=== PATIENT | female | born 1940 | race Caucasian/White ===

== ENCOUNTER → 2016-10-30 | Outpatient (CLI) | payer MEDICARE, OTHER ==
[2016-10-30 12:27] LABS: Prothrombin Time 10.5 sec (9.0-12.0)
== END | disposition home or self-care (01) ==
LOC: LABPAT 11:29
PROVIDERS: ATTEND Orthopaedic Surgery
DX: Z01.812 Encounter for preprocedural laboratory examination (principal); Z79.01 Long term (current) use of anticoagulants
CPT/HCPCS: 36415; 71020; 80053; 83036; 83880; 84439; 84443; 84550; 85025; 85610; 85730; 86850; 86900; 86901

== ENCOUNTER → 2016-10-30 | Outpatient (CLI) | payer MEDICARE, OTHER ==
[2016-10-30 11:13] LABS: Basophils % (A) 0 %; CH 28.4; CHCM 31.9; Eosinophils # (A) 0.2 k/uL (0-0.7); Eosinophils % (A) 4 %; HCT 43.2 % (34.0-46.0); HDW 2.83; HGB 13.6 gm/dL (11.4-16.0); Hypochromasia Slight; Luc # (Auto) 0.13; Luc % (Auto) 3; Lymphocytes # (A) 1.3 k/uL (1.0-4.8); Lymphocytes % (A) 27 %; MCH 28.1 pg (25.0-35.0); MCHC 31.4 g/dL (31.0-37.0); MCV 89.3 fL (80.0-100.0); Mean Platelet Volume 7.4; Monocytes # (A) 0.3 k/uL (0-1.0); Monocytes % (A) 6 %; Neutrophils # (A) 2.9 k/uL (1.3-7.7); Neutrophils % (A) 60 %; RBC 4.84 m/uL (3.80-5.40); RDW 14.1 % (11.5-15.5); WBC 4.8 k/uL (3.8-10.6); WBC (Perox) 4.99
--- NOTE | 2016-10-30 11:22 | XR ---
EXAMINATION TYPE: XR chest 2V DATE OF EXAM: 10/30/2016 10:58 AM COMPARISON: 04/17/12 HISTORY: Shortness of breath TECHNIQUE: Frontal and lateral views of the chest are obtained. FINDINGS: Scattered senescent parenchymal changes noted. Hyperinflation compatible with COPD. No evidence for infiltrate. No evidence for atelectasis. Heart size is stable. Mediastinal structures are stable and grossly unremarkable. No evidence for hilar prominence. Degenerative changes dorsal spine. IMPRESSION: 1. No evidence for acute pulmonary disease.
[2016-10-30 11:24] LABS: Calcium 9.4 mg/dL (8.4-10.2); Potassium 4.5 mmol/L (3.5-5.1); Total Bilirubin 0.8 mg/dL (0.2-1.3); Total Protein 7.1 g/dL (6.3-8.2); Uric Acid 6.6 mg/dL (3.7-7.4)
[2016-10-30 11:42] LABS: Hemoglobin A1C 5.1 % (4.2-6.1)
== END | disposition home or self-care (01) ==
LOC: LABWHC1 10:29
PROVIDERS: ATTEND Orthopaedic Surgery
DX: Z01.818 Encounter for other preprocedural examination (principal); Z01.812 Encounter for preprocedural laboratory examination; Z79.01 Long term (current) use of anticoagulants
CPT/HCPCS: 36415; 71020; 80053; 83036; 83880; 84439; 84443; 84550; 85025

== ENCOUNTER 2016-11-09 05:55 | Inpatient (IN) | payer MEDICARE, OTHER ==
[2016-11-02 12:37] VITALS: BMI 50.8
--- NOTE | 2016-11-08 13:24 | HP ---
DATE OF ADMISSION: 11/09/2016 Lisa Campos is a 76-year-old patient seen with symptomatic right hip osteoarthritis. After having treatment options discussed, she elected to proceed with direct anterior approach, right total hip arthroplasty. Consent regarding the procedure was obtained. Medical clearance was provided by Dr. Tinajero. Past medical history is hypertension, gastroesophageal reflux disease, osteoarthritis, hypothyroidism. Past surgical history is left total knee arthroplasty. DAILY MEDICATIONS: 1. Tramadol. 2. Alprazolam. 3. Furosemide. 4. Hydralazine. 5. Levothyroxine. 6. Metoprolol. 7. Prilosec. 8. Spironolactone. Allergies are none. SOCIAL HISTORY: Patient denies tobacco use. Physical evaluation of right hip: There is diffuse tenderness, limited range of motion with severe pain, diffuse weakness about the hip girdle, positive hip impingement sign. Straight-leg raise is negative. Distal neurovascular exam is intact. Radiographs of the right hip revealed severe osteoarthritis. IMPRESSION: Right hip osteoarthritis. PLAN: Direct anterior approach right total hip arthroplasty.
[~2016-11-09 05:55] MED LIST: ACETAMINOPHEN TAB 500 MG TAB PO ONE; FAMOTIDINE 20 MG/2 ML VIAL IV PRN; HYDROmorphone 1 MG/ML 1 ML SYRINGE IVP PRN; LACTATED RINGERS 1,000 ML IV SCH; LIDOCAINE 1% 20 ML VIAL (10MG/ML) FOR IV START INTRADERMA PRN; MELOXICAM 7.5 MG TAB PO ONE; MIDAZOLAM 2 MG/2 ML VIAL IV PRN; ONDANSETRON 4 MG/2 ML VIAL IVP PRN; TRANEXAMIC ACID 1,000 MG in SODIUM CHLORIDE 0.9% 100 ML IVPB ONE; ceFAZolin 3 GM in SODIUM CHLORIDE 0.9% 100 ML IVPB ONE
[2016-11-09 06:29] VITALS: RESP 16
[2016-11-09] MEDS ORDERED: DEXAMETHASONE SOD PHOS (MDV) 100 MG/10 ML VIAL IVP ONE (06:34)
[2016-11-09] MEDS ORDERED: ROPIVACAINE 246.25 MG, EPINEPHrine 0.5 MG, KETOROLAC 30 MG, cloNIDine HCL/PF 80 MCG, WA... MISCELLANE ONE ×5 (07:38)
[2016-11-09] MEDS ORDERED: TRANEXAMIC ACID 1,000 MG/10 ML VIAL ONE (07:52)
[2016-11-09] MEDS ORDERED: PROPOFOL 10 MG/ML 20 ML VIAL IV ONE (07:52)
[2016-11-09] MEDS ORDERED: MIDAZOLAM 2 MG/2 ML VIAL ONE (07:52)
[2016-11-09] MEDS ORDERED: fentaNYL (PF) 50 MCG/ML 2 ML AMP ONE (07:52)
[2016-11-09] MEDS ORDERED: SODIUM CHLORIDE 0.9% 100 ML BAG ONE (07:52)
[2016-11-09] MEDS ORDERED: PHENYLEPHRINE-0.9% NACL SYG 1 MG/10 ML SYRINGE ONE (07:52)
[2016-11-09] MEDS ORDERED: ceFAZolin 3,000 MG in SODIUM CHLORIDE 0.9% IRRIGATIO 3,000 ML IRRIGATION ONE (08:36)
[2016-11-09] MEDS ORDERED: LACTATED RINGERS 1,000 ML IV ONE (09:34)
--- NOTE | 2016-11-09 10:00 | FL ---
FLUOROSCOPY 21 seconds of fluoroscopy time were utilized during anterior hip replacement. 1 images document the p rocedure.
[2016-11-09] MEDS ORDERED: NALOXONE 0.4 MG/ML 1 ML VIAL IV PRN (10:09)
[2016-11-09] MEDS ORDERED: HYDROcodone/APAP 7.5-325MG 1 EACH TAB PO PRN (10:09)
[2016-11-09] MEDS ORDERED: HYDROmorphone 1 MG/ML 1 ML SYRINGE IVP PRN ×3 (10:09)
[2016-11-09] MEDS ORDERED: hydrOXYzine PAMOATE 25 MG CAP PO PRN (10:09)
[2016-11-09] MEDS ORDERED: ONDANSETRON 4 MG/2 ML VIAL IVP PRN (10:09)
--- NOTE | 2016-11-09 10:09 | P.OP ---
Date of Procedure: 11/09/16 Preoperative Diagnosis: Right hip osteoarthritis Postoperative Diagnosis: Right hip osteoarthritis Procedure(s) Performed: Direct anterior right total hip arthroplasty Implants: 1. Depuy Corail size 12 SOMMER-coated standard non collar cementless femoral stem 2. Depuy pinnacle acetabular shell press-fit 52 mm 3. Depuy pinnacle polyethylene acetabular liner 36 mm ID - 52 mm OD 4. Depuy metal femoral head -2/36 mm Anesthesia: local, spinal Surgeon: Alfredo Mina Burner Hand #1: Major Tanner Estimated Blood Loss (ml): 500 Pathology: other (Femoral head) Condition: stable Disposition: PACU Indications for Procedure: 76-year-old patient seen with symptomatic right hip osteoarthritis. After having treatment options discussed, she elected to proceed with total hip arthroplasty. Operative Findings: See description of procedure Description of Procedure: The patient was taken to the operative suite. Patient underwent a spinal anesthetic by the department of anesthesia. Patient was then transferred to the [place] table. Patient was given preoperative IV antibiotics and TXA. Both lower extremities were placed in standard leg spars. The hip was then prepped and draped in the normal sterile orthopedic fashion. A standard anterior incision was made beginning 3 cm lateral and 1 cm distal to the ASIS extending 10 cm. Dissection was then carried down through the subcutaneous soft tissues down to the fascia overlying the tensor fascia danae. An incision was now made through the fascia. Careful dissection was taken down exposing the tensor fascia danae muscle. A Cobra retractor was now placed along the medial femoral neck and a second one along the lateral femoral neck. The venous circumflex vessels were now identified, cauterized and clipped. We identified the anterior hip capsule. An incision was made through the hip capsule along the lateral border. Tag sutures were then placed along the anterior capsule and lateral capsule. We then performed a capsulotomy. Retractors were now placed around the femoral neck itself. A Cobra retractor was now placed along the anterior acetabulum. Good exposure was now noted of the femoral head/neck complex. Residual labrum was debrided out. We placed the extremity into 3 turns of fine traction. We were then able to introduce a skid in between the femoral head and acetabulum. A placed a awl into the femoral head. We took 2 turns of traction off the extremity. Rotation was now released. The femoral head was then dislocated without difficulty. Additional releasing was performed of the capsule. The head was then reduced. All traction was released. A femoral neck cut was now made with a sagittal saw. It was completed with an osteotome at the lateral neck area. The femoral head was now removed without difficulty. The extremity was now rotated to 60 of external rotation. It was locked in position. Residual labrum was now debrided out. Serial reaming was performed of the acetabulum. Once we reached the appropriate size and a trial was position and fit nicely. The appropriate size was now chosen opened and made available. The wound was irrigated with pulse lavage mechanical irrigation. The acetabular shell was introduced into the acetabulum without difficulty. The C-arm/fluoroscopy was now brought into the operative field. We made sure we had a true AP pelvic view. We now under direct C-arm/fluoroscopy introduced into the acetabular component with appropriate version and inclination. It was well seated and stable. The C-arm was pulled back. An appropriate liner was introduced and clicked into position. It was felt to be stable. At this point retractors were removed. The extremity was now placed into 120 external rotation with no traction. The leg was now dropped to the ground and adducted. Appropriate retractors were now positioned along the proximal femur. We also placed our femoral look into position. Additional capsular releasing was performed to gain access to the proximal femur. We now used a box osteotome. A canal finder was now utilized. Serial broaching was now performed until we reached the appropriate size with good overall rotational stability. Appropriate calcar planing was performed. A trial head/neck was placed into position. The hip was now reduced. The C-arm /fluoroscopy was brought back into the operative field. A spot film was obtained of the nonoperative hip. A spot film was obtained of the trial components. Overlays were performed, we noted good overall alignment and positioning for determining leg length. The C-arm/fluoroscopy was pulled back. Retractors were repositioned and the hip was dislocated. The leg was again taken down to the ground and adducted. Appropriate retractors were repositioned as well as the femoral hook. All trial components were removed. The femoral implant was opened along with the femoral head. The wound was irrigated with pulse lavage mechanical irrigation. The deep soft tissues were infiltrated local analgesic. The femoral implant was introduced with good purchase and fixation noted. The femoral head was introduced with good positioning and fixation noted. Retractors were now removed. The hip was now reduced. There appeared be good positioning of the hip. This was confirmed on intraoperative fluoroscopy and pictures were obtained to document this. Bipolar cautery had been utilized intermittently through the procedure for hemostasis. The wound was irrigated copiously with pulse lavage mechanical irrigation. The superficial soft tissues were infiltrated local analgesic. The fascia was repaired with Vicryl suture. The subcutaneous soft tissues were repaired in layers with Vicryl suture. The skin was approximated with pernio/ Dermabond. Sterile dressings were applied. Patient was then awakened, transferred to a bed and taken to recovery in stable condition. Major GUERRERO assisted with the procedure.
[2016-11-09] MEDS ORDERED: traMADol 50 MG TAB PO SCH (13:00)
[2016-11-09] MEDS ORDERED: ALPRAZolam 0.5 MG TAB PO PRN (14:08)
[2016-11-09] MEDS ORDERED: traMADol 50 MG TAB PO PRN (14:08)
--- NOTE | 2016-11-09 16:07 | P.CONS ---
History of Present Illness - Reason for Consult Consult date: 11/09/16 medical management Requesting physician: Alfredo Mina - Chief Complaint right total hip arthroplasty, hypertension, stage II chronic kidney disease - History of Present Illness 76-year-old overweight female one of Dr. Tinajero's patient with multiple medical problem known to have history of hypertension and osteoarthritis renal disease anxiety gout and GERD who also had hyperparathyroidism problem post hyper parathyroidectomy was doing well but has been having increased pain and arthritis of the right hip for the last 7 years had a dry conservative management in the past in successful with the failure of conservative management decided to go for right total hip arthroplasty anterior approach which was done today successfully with Dr. Mina patient was admitted to the floor afterward. She is up in the chair doing well pain is under control currently in no major complaint patient is very stable hemodynamically. Review of Systems Constitutional: Reports chronic headaches, Reports chronic pain, Reports fatigue , Reports lethargy, Reports weakness, Reports weight gain, Denies as per HPI, Denies anorexia, Denies chills, Denies daytime sleepiness, Denies fever, Denies malaise, Denies night sweats, Denies poor appetite, Denies sweats, Denies weight loss Eyes: bilateral as per HPI Ears: bilateral: decreased hearing, ear discharge Ears, nose, mouth and throat: Reports ant. neck pain, Reports nasal discharge, Reports sinus pain, Reports sinus pressure, Denies as per HPI, Denies bleeding gums, Denies dental pain, Denies dysphagia, Denies epistaxis, Denies headache, Denies hoarseness, Denies mouth pain, Denies nasal congestion, Denies neck fullness/pressure, Denies neck lump, Denies nose pain, Denies odynophagia, Denies post-nasal drip, Denies swelling in mouth, Denies swelling in throat, Denies sore throat, Denies vertigo, Denies voice changes Cardiovascular: Reports dyspnea on exertion, Reports orthopnea, Reports palpitations, Denies as per HPI, Denies chest pain, Denies claudication, Denies decreased exercise tolerance, Denies edema, Denies high blood pressure, Denies irregular heart beat, Denies leg edema, Denies lightheadedness, Denies paroxysmal nocturnal dyspnea, Denies phlebitis, Denies rapid heart beat, Denies shortness of breath, Denies syncope Respiratory: Reports congestion, Reports respiratory infections, Denies as per HPI, Denies cough, Denies cough with sputum, Denies dyspnea, Denies excessive sputum, Denies hemoptysis, Denies home oxygen, Denies pain, Denies pain on inspiration, Denies pleurisy, Denies sleep apnea, Denies snoring, Denies wheezing Gastrointestinal: Reports abdominal pain, Reports belching, Reports bloating, Reports dyspepsia, Reports heartburn, Reports hematemesis, Reports indigestion, Reports nausea, Denies as per HPI, Denies BRBPR, Denies change in bowel habits, Denies coffee ground emesis, Denies constipation, Denies diarrhea, Denies early satiety, Denies excessive gas, Denies hematochezia, Denies jaundice, Denies lactose intolerance, Denies loss of appetite, Denies melena, Denies vomiting Genitourinary: Reports urgency, Reports urinary frequency, Denies as per HPI, Denies abnormal vaginal bleeding, Denies decreased libido, Denies difficulty conceiving, Denies difficulty voiding, Denies dysmenorrhea, Denies dyspareunia, Denies dysuria, Denies flank pain, Denies genital sores, Denies hematuria, Denies hot flashes, Denies incomplete emptying, Denies kidney stones, Denies menorrhagia, Denies mixed incontinence, Denies nocturia, Denies pelvic pain, Denies post void dribbling, Denies , Denies prolapse symptoms, Denies stress incontinence, Denies urge incontinence, Denies vaginal discharge, Denies vaginal dryness, Denies vaginal itching, Denies vaginal odor Musculoskeletal: Reports loss of height, Reports low back pain, Reports myalgias , Reports neck pain, Reports neck stiffness, Denies as per HPI, Denies arm numbness/tingling, Denies atrophy, Denies fractures, Denies frequent falls, Denies gait dysfunction, Denies hot joints, Denies leg numbness/tingling, Denies limitation of motion, Denies morning stiffness, Denies muscle cramps, Denies muscle weakness, Denies prior amputations, Denies redness of joints, Denies shooting arm pain, Denies shooting leg pain Musculoskeletal: right: hip pain, hip stiffness, hip swelling Integumentary: Reports boils, Reports dryness, Reports pruritus, Reports rash, Denies as per HPI, Denies acne, Denies brittle nails, Denies change in hair/ nails, Denies color changes, Denies darkening of skin, Denies depigmentation, Denies foot/leg ulcers, Denies growths, Denies hirsutism, Denies lesions, Denies onychomycosis, Denies sores, Denies striae, Denies unusual bruising, Denies wounds Neurological: Reports ataxia, Reports paralysis, Reports paresthesias, Reports tingling, Reports tremors, Reports vertigo, Reports weakness, Denies as per HPI , Denies aphasia, Denies balance difficulties, Denies burning pain, Denies change in mentation, Denies change in smell/taste, Denies change in speech, Denies confusion, Denies convulsions, Denies double vision, Denies gait dysfunction, Denies head injury, Denies headaches, Denies hearing difficulties, Denies lack of coordination, Denies loss of vision, Denies memory loss, Denies migraines, Denies motor disturbance, Denies numbness, Denies seizures, Denies sensory deficit, Denies spasticity, Denies syncope, Denies tic, Denies transient paralysis, Denies visual changes Psychiatric: Reports depression, Denies as per HPI, Denies anhedonia, Denies anxiety, Denies anxiety attacks, Denies change in appetite, Denies change in libido, Denies change in sleep habits, Denies confusion, Denies difficulty concentrating, Denies disorientation, Denies hallucinations, Denies hopelessness , Denies hypersomnia, Denies insomnia, Denies irritability, Denies memory loss, Denies mood swings, Denies paranoia, Denies sadness/tearfulness, Denies sleep disturbances, Denies suicidal ideation Endocrine: Reports cold intolerance, Reports fatigue, Reports nocturia, Reports palpitations, Denies as per HPI, Denies deepening of the voice, Denies excessive sweating, Denies excessive thirst, Denies flushing, Denies heat intolerance, Denies high blood sugars, Denies increase in ring/shoe/hat size, Denies low blood sugars, Denies polydipsia, Denies polyphagia, Denies polyuria, Denies proptosis, Denies recent glucocorticoid use, Denies thyroid mass, Denies weight change Hematologic/Lymphatic: Reports easy bruising, Denies as per HPI, Denies easy bleeding, Denies lymphadenopathy, Denies lymphedema, Denies thrombophilia Allergic/Immunologic: Denies as per HPI, Denies allergic rhinitis, Denies anaphylaxis, Denies angioedema, Denies gluten intolerance, Denies persistent infections, Denies seasonal allergies, Denies urticaria, Denies wheezing Past Medical History Past Medical History: Cancer, GERD/Reflux, Hypertension, Osteoarthritis (OA), Renal Disease, Thyroid Disorder Additional Past Medical History / Comment(s): hx. skin cancer, gout, ankle edema , some decreased kidney function-PCP monitoring History of Any Multi-Drug Resistant Organisms: None Reported Past Surgical History: Cholecystectomy, Joint Replacement Additional Past Surgical History / Comment(s): parathyroid removed, left knee replaced Past Anesthesia/Blood Transfusion Reactions: No Reported Reaction Past Psychological History: Anxiety Smoking Status: Former smoker Past Alcohol Use History: None Reported Additional Past Alcohol Use History / Comment(s): on & off smoker for 10 yrs., hasn't smoked in over 20 yrs. Past Drug Use History: None Reported - Past Family History Sister(s) Family Medical History: Cancer Medications and Allergies Home Medications Medication Instructions Recorded Confirmed Type ALPRAZolam [Xanax] 0.5 mg PO DAILY PRN 11/30/14 11/09/16 History Cholecalciferol [Vitamin D3] 2,000 unit PO BID 11/30/14 11/09/16 History Cyanocobalamin [Vitamin B-12] 500 mcg PO DAILY@1200 11/30/14 11/09/16 History Furosemide [Lasix] 40 mg PO BID 11/30/14 11/09/16 History traMADol HCl [Ultram] 50 mg PO Q6H PRN 11/30/14 11/09/16 History Allopurinol [Zyloprim] 150 mg PO Q2D 11/02/16 11/09/16 History Levothyroxine Sodium [Synthroid] 50 mcg PO DAILY 11/02/16 11/09/16 History Melatonin 5 mg PO HS 11/02/16 11/09/16 History Metoprolol Succinate [Toprol XL] 50 mg PO 1100 11/02/16 11/09/16 History Omeprazole 20 mg PO 1100 11/02/16 11/09/16 History Spironolactone [Aldactone] 25 mg PO 1100 11/02/16 11/09/16 History hydrALAZINE HCL [Apresoline] 25 mg PO 1100,2100 11/02/16 11/09/16 History Allergies Allergy/AdvReac Type Severity Reaction Status Date / Time No Known Allergies Allergy Verified 11/09/16 11:58 Physical Exam Vitals: Vital Signs Temp Pulse Pulse Resp BP BP Pulse Ox 11/09/16 12:00 16 11/09/16 11:22 56 L 16 101/57 100 11/09/16 11:09 52 L 16 102/53 100 11/09/16 10:54 52 L 16 99/52 100 11/09/16 10:39 51 L 16 97/53 100 11/09/16 10:24 96.8 F L 63 16 93/54 98 11/09/16 06:19 98.0 F 74 16 142/64 94 L Intake and Output 11/08/16 11/09/16 11/09/16 22:59 06:59 14:59 Intake Total 300 1801 Output Total 630 Balance 300 1171 Intake: IV 300 1401 Oral 400 Output: Urine 130 Estimated Blood Loss 500 Other: Voiding Method Indwelling Catheter - Constitutional General appearance: no average body habitus, no cooperative, no disheveled, no mild distress, morbidly obese, no acute distress, no obese, no severe distress, no thin - EENT Eyes: no abnormal pupil, no anicteric sclerae, no disc margins sharp, no edentulous, no EOMI, no PERRLA, no fundus normal, no photophobia, no dentition normal, no poor dentition, no ptosis, no scleral icterus, normal appearance ENT: hard of hearing, no hearing grossly normal, no NA/AT, no normal oropharynx , no other, pharyngeal erythema, no thrush, tonsillar exudates, no tonsillar swelling Ears: bilateral: normal - Neck Neck: normal ROM Carotids: bilateral: upstroke normal Thyroid: bilateral: normal size - Respiratory Respiratory: bilateral: CTA, diminished - Cardiovascular Rhythm: regular Heart sounds: normal: S1, S2 Abnormal Heart Sounds: systolic murmur - Gastrointestinal General gastrointestinal: no absent bowel sounds, decreased bowel sounds, distended, no hepatomegaly, hyperactive bowel sounds, normal bowel sounds, organomegaly, no rigid, no scaphoid, no soft, no splenomegaly, no tenderness, no umbilical hernia, no ventral hernia - Integumentary Integumentary: no calor, no cellulitis, no cyanotic, no decreased turgor, no flushed, no jaundiced, normal, no normal turgor, pale, rash, no ulcer - Neurologic Neurologic: CNII-XII intact - Musculoskeletal Musculoskeletal: gait normal, generalized weakness, strength equal bilaterally - Psychiatric Psychiatric: A&O x's 3, appropriate affect Assessment and Plan Plan: 1 right total hip arthroplasty: Continue all home meds, GI, DVT, pulmonary prophylaxis protocol will be use. Patient will be watch hemodynamically very carefully. 2 hypertension: Has been doing well on hydralazine, Aldactone, metoprolol and Lasix. 3 hypothyroidism: Has been doing well on Synthroid resume medication. 4 chronic edema: Has been on Aldactone and furosemide doing well with both. 5 mild arrhythmia: Has been doing well on metoprolol XL 50 mg daily. 6 gout: Well controlled on Zyloprim 150 mg daily. 7 chronic pain management: Has been on Ultram 50 mg every 6 hours as needed. 8 severe GERD and GI prophylaxis: Patient is on omeprazole 20 mg daily. 9 DVT prophylaxis:patient was started on Lovenox 40 mg subcutaneous daily. CODE STATUS: Full code. Dr. Mina thank you very much for the consult if I can be any further help to please let me know thank you.
[2016-11-09] MEDS: SODIUM CHLORIDE 0.9% 1,000 ML IV SCH (16:25)
[2016-11-09] MEDS: ceFAZolin 3 GM in SODIUM CHLORIDE 0.9% 100 ML IVPB SCH ×2 (16:26→23:01)
[2016-11-09] MEDS: CHOLECALCIFEROL 1,000 UNIT TAB PO SCH (17:30)
[2016-11-09] MEDS: FUROSEMIDE 40 MG TAB PO SCH (20:27)
[2016-11-09] MEDS: hydrALAZINE HCL 25 MG TAB PO SCH (20:28)
[2016-11-09] MEDS: MELATONIN 5 MG TABLET PO SCH ×2 (20:28→22:57)
[2016-11-09] MEDS ORDERED: SENNOSIDES-DOCUSATE SODIUM 1 EACH TAB PO SCH (21:00)
[2016-11-09] MEDS: HYDROcodone/APAP 7.5-325MG 1 EACH TAB PO PRN (22:56)
[2016-11-10] MEDS: HYDROcodone/APAP 7.5-325MG 1 EACH TAB PO PRN ×3 (05:08→16:46)
[2016-11-10] MEDS: SODIUM CHLORIDE 0.9% 1,000 ML IV SCH (05:10)
[2016-11-10] MEDS ORDERED: LEVOTHYROXINE 50 MCG TAB PO SCH (06:30)
[2016-11-10 08:14] LABS: Basophils % (A) 0 %; CH 28.3; CHCM 31.7; Eosinophils % (A) 0 %; HCT 32.6 % (34.0-46.0); HDW 2.67; Hypochromasia Slight; Luc # (Auto) 0.13; Luc % (Auto) 2; Lymphocytes # (A) 0.7 k/uL (1.0-4.8); Lymphocytes % (A) 10 %; MCH 28.7 pg (25.0-35.0); MCHC 32.1 g/dL (31.0-37.0); MCV 89.6 fL (80.0-100.0); Mean Platelet Volume 7.9; Monocytes # (A) 0.4 k/uL (0-1.0); Monocytes % (A) 6 %; Neutrophils # (A) 5.4 k/uL (1.3-7.7); Neutrophils % (A) 81 %; RBC 3.64 m/uL (3.80-5.40); RDW 14.2 % (11.5-15.5); WBC 6.7 k/uL (3.8-10.6); WBC (Perox) 7.17
[2016-11-10 08:29] LABS: HGB 10.5 gm/dL (11.4-16.0)
[2016-11-10 08:33] LABS: Calcium 8.8 mg/dL (8.4-10.2); Total Bilirubin 0.4 mg/dL (0.2-1.3); Total Protein 5.5 g/dL (6.3-8.2)
[2016-11-10] MEDS ORDERED: MELOXICAM 7.5 MG TAB PO SCH (09:00)
[2016-11-10] MEDS ORDERED: FAMOTIDINE 20 MG TAB PO SCH ×2 (09:00)
[2016-11-10] MEDS ORDERED: ENOXAPARIN 40 MG/0.4 ML SYRINGE SQ SCH (09:00)
[2016-11-10] MEDS ORDERED: ALLOPURINOL 300 MG TAB PO SCH (09:00)
[2016-11-10] MEDS: FUROSEMIDE 40 MG TAB PO SCH (09:13)
[2016-11-10] MEDS ORDERED: SPIRONOLACTONE 25 MG TAB PO SCH (11:00)
[2016-11-10] MEDS ORDERED: METOPROLOL SUCCINATE (ER) 50 MG TAB.ER.24H PO SCH (11:00)
[2016-11-10] MEDS ORDERED: PANTOPRAZOLE 40 MG TABLET PO SCH (11:00)
[2016-11-10] MEDS: CHOLECALCIFEROL 1,000 UNIT TAB PO SCH (11:33)
[2016-11-10] MEDS ORDERED: CYANOCOBALAMIN 500 MCG TAB PO SCH (12:00)
[2016-11-10] MEDS ORDERED: MULTIVITAMINS, THERA 1 EACH TAB PO SCH (12:00)
[2016-11-10 14:22] VITALS: BP 113/73; PULSE 93; TEMP 98.3
[2016-11-10] MEDS: hydrALAZINE HCL 25 MG TAB PO SCH (15:01)
--- NOTE | 2016-11-10 16:37 | P.PN ---
Subjective Principal diagnosis: Status post right total hip arthroplasty Patient seen today in a few different occasions. She's doing very well. She is ambulating well with therapy. She denies any headaches, lightheadedness, chest pain, shortness of breath, fever or chills. Objective - Vital Signs Vital signs: Vital Signs Temp 98.3 F 11/10/16 14:21 Pulse 93 11/10/16 14:21 Resp 16 11/10/16 14:21 BP 113/73 11/10/16 14:21 Pulse Ox 95 11/10/16 14:21 Intake & Output 11/09/16 11/10/16 11/10/16 18:59 06:59 18:59 Intake Total 3351 450 600 Output Total 630 700 700 Balance 2721 -250 -100 Intake: IV 1651 450 300 Sodium Chloride 0.9% 1, 250 450 300 000 ml @ 50 mls/hr IV . Q20H ROSEANNA Rx#:[id number] Oral 1700 300 Output: Urine 130 700 700 Uretheral (Martinez) 700 700 Estimated Blood Loss 500 Other: Voiding Method Indwelling Catheter Indwelling Catheter Indwelling Catheter # Voids 1 - Exam Right lower extremity: Incision is clean, dry and intact. Soft tissue swelling over the anterolateral aspect of the right hip. Calf is soft, no tenderness with palpation. Plantar flexion, dorsiflexion, EHL, FHL are intact. Cap refill is less than 3 seconds, sensory exam to light touch throughout the extremity is intact. - Labs CBC & Chem 7: 11/10/16 07:49 11/10/16 07:49 Labs: Abnormal Lab Results - Last 24 Hours (Table) 11/10/16 11/10/16 Range/Units 07:49 07:49 RBC 3.64 L (3.80-5.40) m/uL Hgb 10.5 L D (11.4-16.0) gm/dL Hct 32.6 L (34.0-46.0) % Lymphocytes # 0.7 L (1.0-4.8) k/uL BUN 26 H (7-17) mg/dL Creatinine 1.27 H (0.52-1.04) mg/dL Glucose 103 H (74-99) mg/dL AST 50 H (14-36) U/L Total Protein 5.5 L (6.3-8.2) g/dL Albumin 2.9 L (3.5-5.0) g/dL Assessment and Plan Plan: Assessment: 1. Postop day 1 status post right total hip arthroplasty Plan: 1. Pain control, continue use of oral medication after discharge 2. Daily dressing changes/ice and elevate 3. Home therapy and nursing after discharge 4. Encourage incentive spirometer 5. GI and DVT prophylaxis, will begin Xarelto 10 mg after discharge 6. Medical recommendations 7. Discharge planning: Patient will be discharged home today Time with Patient: Less than 30
--- NOTE | 2016-11-10 16:39 | P.DS ---
Providers Date of admission: 11/09/16 05:55 Expected date of discharge: 11/10/16 Attending physician: Alfredo Mina Consults: 11/09/16 10:09 Consult Physician Routine Consulting Provider: Beronica Tinajero Consult Reason/Comments: Medical management Do you want consulting provider notified?: Yes Primary care physician: Beronica Tinajero Hospital Course: Date of admission: 11/09/2016 Date of discharge: 11/10/2016 Admission diagnosis: Status post right total hip arthroplasty Discharge diagnosis: Same Attending physician: Dr. Mina Surgical procedures: Right total hip arthroplasty Brief history: Patient is a 76-year-old female with a history of progressive primary right hip osteoarthritis. At this point patient has failed conservative treatment measures and has opted to proceed with a elective right total hip arthroplasty. Hospital course: Details of patient's surgery can be found in operative report. Patient tolerated the procedure well and was subsequently transported to orthopedic floor. Patient's orthopeidc and medical care was provided daily. Patient had daily laboratory tests performed for evaluation of overall blood counts. Patient had daily physical therapy to include strengthening range of motion as well as education with walker ambulation. Patient was treated with Lovenox for their postoperative DVT prophylaxis during their inpatient stay. Patient was noted to have a relatively uneventful postoperative course. Patient reported satisfactory pain control with oral pain medications by postoperative day 0. Patient showed satisfactory progress with physical therapy. Patient moved steadily through the program and had no difficulty meeting the goals by postoperative day 1. Given patient's otherwise satisfactory course and having met physical therapy goals, plan is to discharge patient home on postoperative day 1. Discharge condition/disposition: Patient will be discharged home in stable condition. Discharge medications: Instructions are given on resumption of patient's normal daily medications per primary care recommendation, in addition patient will be prescribed Ethridge 7.5 mg/325 mg, Colace 100 mg, Xarelto 10 mg. Discharge instructions: 1. Wound care and infection precautions, keep incision dry and covered while showering, no lotions, creams, moisturizers. No soaking, tubs, pools, hottubs. Do not scrub over the incision. 2. Weight-bear as tolerated with walker / cane until follow-up. 3. Ice and elevate when necessary. Do not exceed 20 minutes per hour with ice pack. 4. Utilize compression sleeve until seen at first follow up appointment. 5. Visiting nursing care. 6. Home physical therapy. 7. Pain meds and anticoagulants per prescription. 8. Pain medication has potential to cause constipation. Increase oral fluid and fiber intake. Contact primary care provider if you have not had a bowel movement within 48 hours after discharge 9. No anti-inflammatory medication until discussed at first post operative visit, this including Motrin, Aleve, Mobic, Diclofenac. 10. Follow up in office at 2 weeks postop with Mark Tanner PA-C 11. Follow up with your primary care doctor 7-10 days after discharge. 12. Contact [facility] with any questions, . Procedures: Right total hip arthroplasty Patient Condition at Discharge: Good Plan - Discharge Summary New Discharge Prescriptions: Docusate [Colace] 100 mg PO DAILY #20 capsule HYDROcodone/APAP 7.5-325MG [Ethridge 7.5] 1 - 2 each PO Q6HR PRN #60 tab PRN Reason: Pain Rivaroxaban [Xarelto] 10 mg PO DAILY #28 tab Discharge Medication List ALPRAZolam [Xanax] 0.5 mg PO DAILY PRN 11/30/14 [History] Cholecalciferol [Vitamin D3] 2,000 unit PO BID 11/30/14 [History] Cyanocobalamin [Vitamin B-12] 500 mcg PO DAILY@1200 11/30/14 [History] Furosemide [Lasix] 40 mg PO BID 11/30/14 [History] traMADol HCl [Ultram] 50 mg PO Q6H PRN 11/30/14 [History] Allopurinol [Zyloprim] 150 mg PO Q2D 11/02/16 [History] Levothyroxine Sodium [Synthroid] 50 mcg PO DAILY 11/02/16 [History] Melatonin 5 mg PO HS 11/02/16 [History] Metoprolol Succinate [Toprol XL] 50 mg PO 1100 11/02/16 [History] Omeprazole 20 mg PO 1100 11/02/16 [History] Spironolactone [Aldactone] 25 mg PO 1100 11/02/16 [History] hydrALAZINE HCL [Apresoline] 25 mg PO 1100,2100 11/02/16 [History] Docusate [Colace] 100 mg PO DAILY #20 capsule 11/10/16 [Rx] HYDROcodone/APAP 7.5-325MG [Ethridge 7.5] 1 - 2 each PO Q6HR PRN #60 tab 11/10/16 [ Rx] Rivaroxaban [Xarelto] 10 mg PO DAILY #28 tab 11/10/16 [Rx] Follow up Appointment(s)/Referral(s): Major Tanner PAC [PHYSICIAN [employer] INSTALLER] - 11/25/16 1:50 pm Activity/Diet/Wound Care/Special Instructions: [facility] -[phone] [facility] to deliver your walker Take bp medications and follow up with as instructed pt has Xaralto in pharmacy with a $3.36 co-pay Orthopedic Discharge Instructions: 1. Wound care and infection precautions, keep incision dry and covered while showering, no lotions, creams, moisturizers. No soaking, pools, hot tubs. Do not scrub over incision. 2. Weight-bear as tolerated with walker / cane until follow-up. 3. Ice and elevate when necessary. Do not exceed 20 minutes per hour with ice pack. 4. Utilize compression sleeve until seen at first follow up appointment. 5. Visiting nursing care. 6. Home physical therapy. 7. Pain meds and anticoagulants per prescription. 8. Pain medication has potential to cause constipation. Increase oral fluid and fiber intake. Contact primary care provider if you have not had a bowel movement within 48 hours after discharge. 9. No anti-inflammatory medication until discussed at first post operative visit, this including Motrin, Aleve, Mobic, Diclofenac. 10. Follow up in office at 2 weeks postop with Mark Tanner PA-C 11. Follow up with your primary care doctor 7-10 days after discharge. 12. Contact [facility] with any questions, . Discharge Disposition: HOME WITH HOME HEALTH SERVICES
[2016-11-11] MEDS ORDERED: ENOXAPARIN 30 MG/0.3 ML SYRINGE SQ SCH (09:00)
== END 2016-11-10 17:50 | disposition home health service (06) | DRG 470 ==
LOC: 2ORMAIN 05:55 → 3SUR 10:03
PROVIDERS: ADMIT Orthopaedic Surgery; ATTEND Orthopaedic Surgery
PROC: 0SR902A Replacement of Right Hip Joint with Metal on Polyethylene Synthetic Substitute, Uncemented, Open Approach (ICD-10-PCS; principal; 2016-11-09 07:30)
DX: M16.11 Unilateral primary osteoarthritis, right hip (principal); I12.9 Hypertensive chronic kidney disease with stage 1 through stage 4 chronic kidney disease, or unspecified chronic kidney disease; E03.9 Hypothyroidism, unspecified; K21.9 Gastro-esophageal reflux disease without esophagitis; M10.9 Gout, unspecified; N18.2 Chronic kidney disease, stage 2 (mild); Z79.899 Other long term (current) drug therapy; Z87.891 Personal history of nicotine dependence
CPT/HCPCS: 73501; 80053; 85025; 86850; 86900; 86901; 88300

== ENCOUNTER 2016-11-23 15:08 | Inpatient (IN) | payer MEDICARE, OTHER ==
[2016-11-23] MEDS ORDERED: ACETAMINOPHEN TAB 500 MG TAB PO STA (15:41)
[2016-11-23] MEDS ORDERED: SODIUM CHLORIDE 0.9% 500 ML IV STA (15:41)
[2016-11-23] MEDS ORDERED: SODIUM CHLORIDE 0.9% 1,000 ML IV STA (15:41)
--- NOTE | 2016-11-23 15:48 | ED ---
General Adult HPI - General Chief complaint: Fever Stated complaint: fever Time Seen by Provider: 11/23/16 15:26 Source: patient, RN notes reviewed, old records reviewed Mode of arrival: ambulatory Limitations: no limitations - History of Present Illness Initial comments: Chief complaint and history of present illness 76-year-old female here with her daughter. The patient reports she had a fever started last night. Current temperature 101.8. Had the chills. In frequency of urination but no dysuria or urgency. Recently the patient had a total right hip done approximately 2 weeks ago. No complaints of problems with that no redness no discharge no pain in the right hip area. - Related Data Home Medications Medication Instructions Recorded Confirmed ALPRAZolam [Xanax] 0.5 mg PO DAILY PRN 11/30/14 11/23/16 Cholecalciferol [Vitamin D3] 2,000 unit PO BID 11/30/14 11/23/16 Cyanocobalamin [Vitamin B-12] 500 mcg PO DAILY@1200 11/30/14 11/23/16 Furosemide [Lasix] 40 mg PO BID 11/30/14 11/23/16 traMADol HCl [Ultram] 50 mg PO Q6H PRN 11/30/14 11/23/16 Allopurinol [Zyloprim] 150 mg PO Q48H 11/02/16 11/23/16 Levothyroxine Sodium [Synthroid] 50 mcg PO DAILY 11/02/16 11/23/16 Melatonin 5 mg PO HS 11/02/16 11/23/16 Metoprolol Succinate [Toprol XL] 50 mg PO DAILY@1100 11/02/16 11/23/16 Omeprazole 20 mg PO DAILY@1100 11/02/16 11/23/16 Spironolactone [Aldactone] 25 mg PO DAILY@1100 11/02/16 11/23/16 hydrALAZINE HCL [Apresoline] 25 mg PO BID@1100,2100 11/02/16 11/23/16 HYDROcodone/APAP 7.5-325MG [Phelan 1 - 2 tab PO Q6HR PRN 11/23/16 11/23/16 7.5] Previous Rx's Medication Instructions Recorded Docusate [Colace] 100 mg PO DAILY #20 capsule 11/10/16 Rivaroxaban [Xarelto] 10 mg PO DAILY #28 tab 11/10/16 Allergies Allergy/AdvReac Type Severity Reaction Status Date / Time No Known Allergies Allergy Verified 11/23/16 15:37 Review of Systems ROS Statement: Those systems with pertinent positive or pertinent negative responses have been documented in the HPI. Review of systems no headache no stiff neck no chest pain no cough no GI problems. Denying nausea vomiting or diarrhea. She does have frequency but no urgency or dysuria. No balance problems. All systems are reviewed. Past medical problems melanoma removed 8 years ago, GERD, hypertension, osteoarthritis, chronic renal disease due to diuretic medications. Hypothyroidism. Hyperparathyroidism treated with 1 removal of parathyroid. Patient's surgeries also include cholecystectomy, total left knee and recently, 2 weeks ago total right hip. Nonsmoker nondrinker. ALLERGIES none. ROS Other: All systems not noted in ROS Statement are negative. Past Medical History Past Medical History: Cancer, GERD/Reflux, Hypertension, Osteoarthritis (OA), Renal Disease, Thyroid Disorder Additional Past Medical History / Comment(s): hx. skin cancer, gout, ankle edema , some decreased kidney function-PCP monitoring History of Any Multi-Drug Resistant Organisms: None Reported Past Surgical History: Cholecystectomy, Joint Replacement Additional Past Surgical History / Comment(s): parathyroid removed, left knee replaced Past Anesthesia/Blood Transfusion Reactions: No Reported Reaction Past Psychological History: Anxiety Smoking Status: Former smoker Past Alcohol Use History: None Reported Additional Past Alcohol Use History / Comment(s): on & off smoker for 10 yrs., hasn't smoked in over 20 yrs. Past Drug Use History: None Reported - Past Family History Sister(s) Family Medical History: Cancer General Exam - General Exam Comments Initial Comments: General: The patient is awake and alert, in no distress, and does not appear acutely ill. Complains of fever, frequency of urination but no dysuria. Vital signs shows temperature 101.8 the patient received 1 g of Tylenol by mouth. Pulse 79 history rate 18 pulse ox 94% in room air blood pressure 119/56 Eye: Pupils are equal, round and reactive to light, extra-ocular movements are intact ; there is normal conjunctiva bilaterally. No signs of icterus. Ears, nose, mouth and throat: There are moist mucous membranes and no oral lesions. Neck: The neck is supple, there is no tenderness , no stiff neck no meningismus. No anterior cervical lymphadenopathy. Cardiovascular: There is a regular rate and rhythm. No murmur, rub or gallop is appreciated. Respiratory: Lungs are clear to auscultation, respirations are non-labored, breath sounds are equal. No wheezes, stridor, rales, or rhonchi. Gastrointestinal: Soft, non-distended, non-tender abdomen without masses or organomegaly noted. There is no rebound or guarding present. No CVA tenderness. Bowel sounds are unremarkable. Morbidly obese Back: There is no tenderness to palpation in the midline. There is no obvious deformity. No rashes noted. Musculoskeletal: Normal ROM, no tenderness, chronic lower extremity edema. There is no calf tenderness or swelling. Sensation intact. Neurovascular status to the feet intact. Examination of the surgical site on the right total hip area appears normal. No redness no pain no exudate no discharge. Nontender to palpation along the suture line. Neurological: CN II-XII intact, There are no obvious motor or sensory deficits. Coordination appears grossly intact. Speech is normal. No focal or lateralizing findings Skin: Daughter thinks he may be a slight rash on the upper chest. Nonspecific at this time Limitations: no limitations Course Vital Signs 11/23/16 15:12 Temperature 101.8 F H Pulse Rate 79 Respiratory 18 Rate Blood Pressure 119/56 O2 Sat by Pulse 94 L Oximetry Medical Decision Making - Medical Decision Making Medical decision making; patient's white count 11.4 hemoglobin 12 hematocrit of 32. Potassium 4.0, BUN 20 creatinine 1.26 with a GFR 41. Glucose 109. AST 250 ALT 197 alk phos 252. The patient's influenza AB reported to be negative. Urinalysis shows moderate leuk esterase +7 WBCs 2 RBCs. Urine culture pending. Blood culture pending. Chest x-ray is done AP and lateral view. It was reviewed by radiologist and his impression is a very minimal plate atelectasis. #[address] Alex agarwal The patient be started on Levaquin at this time Case discussed with Dr. Tinajero, the patient's attending. She'll be admitted to Dr. Tinajero service continued on Levaquin. - Lab Data Result diagrams: 11/23/16 15:50 11/23/16 15:50 Lab Results 11/23/16 11/23/16 11/23/16 Range/Units 15:50 15:50 15:50 WBC 11.4 H (3.8-10.6) k/uL RBC 3.70 L (3.80-5.40) m/uL Hgb 10.4 L (11.4-16.0) gm/dL Hct 32.3 L (34.0-46.0) % MCV 87.2 (80.0-100.0) fL MCH 28.1 (25.0-35.0) pg MCHC 32.3 (31.0-37.0) g/dL RDW 14.8 (11.5-15.5) % Plt Count 280 (150-450) k/uL Neutrophils % 91 % Lymphocytes % 3 % Monocytes % 4 % Eosinophils % 1 % Basophils % 0 % Neutrophils # 10.4 H (1.3-7.7) k/uL Lymphocytes # 0.3 L (1.0-4.8) k/uL Monocytes # 0.4 (0-1.0) k/uL Eosinophils # 0.1 (0-0.7) k/uL Basophils # 0.0 (0-0.2) k/uL Sodium 140 (137-145) mmol/L Potassium 4.0 (3.5-5.1) mmol/L Chloride 99 (98-107) mmol/L Carbon Dioxide 29 (22-30) mmol/L Anion Gap 12 mmol/L BUN 20 H (7-17) mg/dL Creatinine 1.26 H (0.52-1.04) mg/dL Est GFR (MDRD) Af Amer 50 (>60 ml/min/1.73 sqM) Est GFR (MDRD) Non-Af 41 (>60 ml/min/1.73 sqM) Glucose 109 H (74-99) mg/dL Plasma Lactic Acid Kenny (0.7-2.0) mmol/L Calcium 8.9 (8.4-10.2) mg/dL Total Bilirubin 0.8 (0.2-1.3) mg/dL AST 252 H (14-36) U/L ALT 197 H (9-52) U/L Alkaline Phosphatase 252 H (38-126) U/L Total Protein 6.6 (6.3-8.2) g/dL Albumin 3.6 (3.5-5.0) g/dL Urine Color Urine Appearance (Clear) Urine pH (5.0-8.0) Ur Specific Edmond (1.001-1.035) Urine Protein (Negative) Urine Glucose (UA) (Negative) Urine Ketones (Negative) Urine Blood (Negative) Urine Nitrate (Negative) Urine Bilirubin (Negative) Urine Urobilinogen (<2.0) mg/dL Ur Leukocyte Esterase (Negative) Urine RBC (0-5) /hpf Urine WBC (0-5) /hpf Ur Squamous Epith Cells (0-4) /hpf Urine Mucus (None) /hpf Influenza Type A RNA Not Detected (Not Detectd) Influenza Type B (PCR) Not Detected (Not Detectd) 11/23/16 11/23/16 Range/Units 15:50 15:50 WBC (3.8-10.6) k/uL RBC (3.80-5.40) m/uL Hgb (11.4-16.0) gm/dL Hct (34.0-46.0) % MCV (80.0-100.0) fL MCH (25.0-35.0) pg MCHC (31.0-37.0) g/dL RDW (11.5-15.5) % Plt Count (150-450) k/uL Neutrophils % % Lymphocytes % % Monocytes % % Eosinophils % % Basophils % % Neutrophils # (1.3-7.7) k/uL Lymphocytes # (1.0-4.8) k/uL Monocytes # (0-1.0) k/uL Eosinophils # (0-0.7) k/uL Basophils # (0-0.2) k/uL Sodium (137-145) mmol/L Potassium (3.5-5.1) mmol/L Chloride (98-107) mmol/L Carbon Dioxide (22-30) mmol/L Anion Gap mmol/L BUN (7-17) mg/dL Creatinine (0.52-1.04) mg/dL Est GFR (MDRD) Af Amer (>60 ml/min/1.73 sqM) Est GFR (MDRD) Non-Af (>60 ml/min/1.73 sqM) Glucose (74-99) mg/dL Plasma Lactic Acid Kenny 1.2 (0.7-2.0) mmol/L Calcium (8.4-10.2) mg/dL Total Bilirubin (0.2-1.3) mg/dL AST (14-36) U/L ALT (9-52) U/L Alkaline Phosphatase (38-126) U/L Total Protein (6.3-8.2) g/dL Albumin (3.5-5.0) g/dL Urine Color Yellow Urine Appearance Clear (Clear) Urine pH 5.0 (5.0-8.0) Ur Specific Edmond 1.011 (1.001-1.035) Urine Protein Negative (Negative) Urine Glucose (UA) Negative (Negative) Urine Ketones Negative (Negative) Urine Blood Negative (Negative) Urine Nitrate Negative (Negative) Urine Bilirubin Negative (Negative) Urine Urobilinogen <2.0 (<2.0) mg/dL Ur Leukocyte Esterase Moderate H (Negative) Urine RBC 2 (0-5) /hpf Urine WBC 7 H (0-5) /hpf Ur Squamous Epith Cells 3 (0-4) /hpf Urine Mucus Rare H (None) /hpf Influenza Type A RNA (Not Detectd) Influenza Type B (PCR) (Not Detectd) Disposition Clinical Impression: Urinary tract infection Disposition: ADMITTED IP TO THIS [facility] Condition: Stable Referrals: Beronica Tinajero MD [Primary Care Provider] - 1-2 days
[2016-11-23 16:06] LABS: Basophils % (A) 0 %; CH 28.3; CHCM 32.6; Eosinophils # (A) 0.1 k/uL (0-0.7); Eosinophils % (A) 1 %; HCT 32.3 % (34.0-46.0); HDW 2.78; HGB 10.4 gm/dL (11.4-16.0); Luc # (Auto) 0.12; Luc % (Auto) 1; Lymphocytes # (A) 0.3 k/uL (1.0-4.8); Lymphocytes % (A) 3 %; MCH 28.1 pg (25.0-35.0); MCHC 32.3 g/dL (31.0-37.0); MCV 87.2 fL (80.0-100.0); Mean Platelet Volume 8.1; Monocytes # (A) 0.4 k/uL (0-1.0); Monocytes % (A) 4 %; Neutrophils # (A) 10.4 k/uL (1.3-7.7); Neutrophils % (A) 91 %; RDW 14.8 % (11.5-15.5); WBC 11.4 k/uL (3.8-10.6)
[2016-11-23 16:09] LABS: Calcium 8.9 mg/dL (8.4-10.2); Total Bilirubin 0.8 mg/dL (0.2-1.3); Total Protein 6.6 g/dL (6.3-8.2)
[2016-11-23 16:22] LABS: Appearance,Urine Clear (Clear); Bilirubin,Urine Negative (Negative); Glucose,Urine (UA) Negative (Negative); Ketones,Urine Negative (Negative); Leukocyte Esterase,Urine Moderate (Negative); Mucus,Urine Rare /hpf; Nitrite,Urine Negative (Negative); Particle Count 2708; Protein,Urine Negative (Negative); RBC,Urine 2 /hpf (0-5); Specific Gravity,Urine 1.011 (1.001-1.035); Squamous Epithelial Cell,Urine 3 /hpf (0-4); UA Billing (MACRO vs. MICRO) MICRO; Urobilinogen,Urine <2.0 mg/dL (<2.0); WBC,Urine 7 /hpf (0-5)
[2016-11-23] MEDS ORDERED: LEVOFLOXACIN 500MG-D5W PMX 500 MG in DEXTROSE/WATER 1 100ML.BAG IVPB STA (16:26)
--- NOTE | 2016-11-23 16:46 | XR ---
EXAMINATION TYPE: XR chest 2V DATE OF EXAM: 11/23/2016 4:34 PM COMPARISON: 10/30/2016 INDICATION: Fever TECHNIQUE: Single frontal view of the chest is obtained. FINDINGS: The heart size is normal. The pulmonary vasculature is normal. Subtle plate atelectasis may be within the left midlung. There is an increased AP diameter with some increased retrosternal airspace. Chronic rotator cuff tear may be on the right. IMPRESSION: 1. Very minimal plate atelectasis. 2. COPD
[2016-11-23] MEDS ORDERED: NALOXONE 0.4 MG/ML 1 ML VIAL IV PRN (17:22)
[2016-11-23] MEDS ORDERED: ACETAMINOPHEN TAB 325 MG TAB PO PRN (17:22)
[2016-11-23] MEDS ORDERED: ALPRAZolam 0.5 MG TAB PO PRN (17:26)
[2016-11-23] MEDS: SODIUM CHLORIDE 0.9% 1,000 ML IV SCH (18:38)
[2016-11-23] MEDS: CHOLECALCIFEROL 1,000 UNIT TAB PO SCH ×2 (20:44→20:49)
[2016-11-23] MEDS: FUROSEMIDE 40 MG TAB PO SCH ×2 (20:44→20:49)
[2016-11-23] MEDS: hydrALAZINE HCL 25 MG TAB PO SCH (20:44)
[2016-11-23] MEDS: MELATONIN 5 MG TABLET PO SCH (20:44)
[2016-11-24] MEDS: LEVOTHYROXINE 50 MCG TAB PO SCH (05:57)
[2016-11-24] MEDS: SODIUM CHLORIDE 0.9% 1,000 ML IV SCH ×2 (05:58→18:12)
[2016-11-24 08:35] LABS: ALT 144 U/L (9-52); AST 139 U/L (14-36); Alkaline Phosphatase 195 U/L (38-126); Anion Gap 11 mmol/L; Blood Urea Nitrogen 17 mg/dL (7-17); Calcium 8.6 mg/dL (8.4-10.2); Carbon Dioxide 24 mmol/L (22-30); Chloride 107 mmol/L (98-107); Glucose 92 mg/dL (74-99); Non-African American GFR(MDRD) 58 (>60 ml/min/1.73 sqM); Sodium 142 mmol/L (137-145); Total Bilirubin 0.9 mg/dL (0.2-1.3); Total Protein 5.9 g/dL (6.3-8.2)
[2016-11-24] MEDS ORDERED: ALLOPURINOL 300 MG TAB PO SCH (09:00)
[2016-11-24] MEDS: DOCUSATE 100 MG CAP PO SCH (09:25)
[2016-11-24] MEDS: FUROSEMIDE 40 MG TAB PO SCH ×2 (09:25→21:56)
[2016-11-24] MEDS: CHOLECALCIFEROL 1,000 UNIT TAB PO SCH ×2 (09:25→17:05)
[2016-11-24] MEDS: RIVAROXABAN 10 MG TAB PO SCH (09:25)
[2016-11-24 10:55] LABS: Hepatitis B Surface Ag Index 0.08
[2016-11-24 11:01] LABS: Hepatitis B Core IgM Index 0.12
[2016-11-24 11:13] LABS: Hepatitis C Virus IgG Index 0.02
[2016-11-24 11:18] LABS: Hepatitis C Virus IgG Ab Negative (Negative)
[2016-11-24] MEDS: hydrALAZINE HCL 25 MG TAB PO SCH ×2 (11:28→22:02)
[2016-11-24] MEDS: PANTOPRAZOLE 40 MG TABLET PO SCH (11:28)
[2016-11-24] MEDS: METOPROLOL SUCCINATE (ER) 50 MG TAB.ER.24H PO SCH (11:28)
[2016-11-24] MEDS: SPIRONOLACTONE 25 MG TAB PO SCH (11:28)
[2016-11-24] MEDS: CYANOCOBALAMIN 500 MCG TAB PO SCH (11:28)
--- NOTE | 2016-11-24 12:57 | P.HPIM ---
History of Present Illness H&P Date: 11/24/16 Chief Complaint: UTI 76-year-old female one of Dr. Tinajero's patient with multiple medical problem known to have history of hypertension and osteoarthritis, chronic kidney disease stage III, generalized anxiety disorder, unspecified gout, gastroesophageal reflux disease, hyperparathyroidism status post hyper parathyroidectomy. Patient had recent hospitalization for very through the which time she underwent an elective right total hip arthroplasty with Dr. Mina. Patient did not have any postop complications and was discharged home on the . She states she has been doing well at home using her walker until she started having cold and fever. She denies any abdominal pain. She denies any known flu contact. She states she's had a little cough. No diarrhea and no rash. White count was 11.4 with fever of 101.4, and hemoglobin 10.4, BUN 20 creatinine 1.26. Influenza testing a and B were not detected. Urinalysis was clear with leukoesterase moderate, WBC 7. Liver function tests were elevated and on previous blood tests, her liver function tests have been normal. Chest x-ray showed very minimal plate atelectasis and COPD. Urine culture is in progress. Patient states that she has an appointment tomorrow with Dr. Mina for follow-up visit. [facility] with dehydration and started on Levaquin. Consult with Dr. Mina requested. Review of Systems All systems: negative Constitutional: Reports chills, Reports fatigue, Reports fever Eyes: denies blurred vision, denies pain Ears, nose, mouth and throat: Denies headache, Denies sore throat Cardiovascular: Denies chest pain, Denies shortness of breath Respiratory: Reports cough Gastrointestinal: Denies abdominal pain, Denies diarrhea, Denies nausea, Denies vomiting Genitourinary: Denies dysuria, Denies hematuria Musculoskeletal: Denies myalgias Integumentary: Denies pruritus, Denies rash Neurological: Denies numbness, Denies weakness Psychiatric: Denies anxiety, Denies depression Endocrine: Denies fatigue, Denies weight change Past Medical History Past Medical History: Cancer, GERD/Reflux, Hypertension, Osteoarthritis (OA), Renal Disease, Thyroid Disorder Additional Past Medical History / Comment(s): hx. skin cancer, gout, ankle edema , chronic kidney disease stage III History of Any Multi-Drug Resistant Organisms: None Reported Past Surgical History: Cholecystectomy, Joint Replacement Additional Past Surgical History / Comment(s): parathyroid removed, left knee replaced, TOTAL RT HIP 11-09-16 Past Anesthesia/Blood Transfusion Reactions: No Reported Reaction Past Psychological History: Anxiety Smoking Status: Former smoker Past Alcohol Use History: None Reported Additional Past Alcohol Use History / Comment(s): on & off smoker for 10 yrs., hasn't smoked in over 20 yrs. Past Drug Use History: None Reported - Past Family History Sister(s) Family Medical History: Cancer Additional Family Medical History / Comment(s): BREAST CANCER Father Family Medical History: Myocardial Infarction ([place]) Additional Family Medical History / Comment(s): FROM [place] AT GE 58 Mother Family Medical History: Cancer Additional Family Medical History / Comment(s): Monitored at age 74 with history of CERVICAL CANCER/METS, COPD, CHF Brother(s) Additional Family Medical History / Comment(s): Patient has one brother with diabetes. Daughter(s) Additional Family Medical History / Comment(s): Patient has 2 daughters. One has no major medical problems. One has history of irregular heartbeat. Son(s) Additional Family Medical History / Comment(s): Patient has 2 sons with no major medical problems. Medications and Allergies Home Medications Medication Instructions Recorded Confirmed Type ALPRAZolam [Xanax] 0.5 mg PO DAILY PRN 11/30/14 11/23/16 History Cholecalciferol [Vitamin D3] 2,000 unit PO BID 11/30/14 11/23/16 History Cyanocobalamin [Vitamin B-12] 500 mcg PO DAILY@1200 11/30/14 11/23/16 History Furosemide [Lasix] 40 mg PO BID 11/30/14 11/23/16 History traMADol HCl [Ultram] 50 mg PO Q6H PRN 11/30/14 11/23/16 History Allopurinol [Zyloprim] 150 mg PO Q48H 11/02/16 11/23/16 History Levothyroxine Sodium [Synthroid] 50 mcg PO DAILY 11/02/16 11/23/16 History Melatonin 5 mg PO HS 11/02/16 11/23/16 History Metoprolol Succinate [Toprol XL] 50 mg PO DAILY@1100 11/02/16 11/23/16 History Omeprazole 20 mg PO DAILY@1100 11/02/16 11/23/16 History Spironolactone [Aldactone] 25 mg PO DAILY@1100 11/02/16 11/23/16 History hydrALAZINE HCL [Apresoline] 25 mg PO BID@1100,2100 11/02/16 11/23/16 History HYDROcodone/APAP 7.5-325MG [Raymond 1 - 2 tab PO Q6HR PRN 11/23/16 11/23/16 History 7.5] Allergies Allergy/AdvReac Type Severity Reaction Status Date / Time No Known Allergies Allergy Verified 11/23/16 15:37 Physical Exam Vitals: Vital Signs Temp Pulse Pulse Resp BP BP Pulse Ox 11/24/16 07:00 97.3 F L 83 20 129/67 98 11/23/16 23:00 98.1 F 85 18 115/65 97 11/23/16 18:55 99.4 F 84 16 110/60 96 11/23/16 17:44 97.7 F 88 16 97/47 97 Intake and Output 11/23/16 11/24/16 11/24/16 22:59 06:59 14:59 Intake Total 250 640 Balance 250 640 Intake: Intake, IV Titration 640 Amount Sodium Chloride 0.9% 1, 640 000 ml @ 80 mls/hr IV . [id number] [facility] Rx#:[id number] Oral 250 Other: # Voids 2 1 1 Gen: This is a 76-year-old female. She is resting in bed and appears to be in no acute distress. HEENT: Head is atraumatic, normocephalic. Pupils equal, round. Sclerae is anicteric. NECK: Supple. No JVD. No lymphadenopathy. No thyromegaly. LUNGS: Clear to auscultation. No wheezes or rhonchi. No intercostal retractions. HEART: Regular rate and rhythm. Systolic murmur. ABDOMEN: Soft. Bowel sounds are present. No masses. No tenderness. EXTREMITIES: No pedal edema. No calf tenderness. Wound to the right hip shows no drainage, bleeding, erythema. Edges are closed. NEUROLOGICAL: Patient is awake, alert and oriented x3. Cranial nerves 2 through 12 are grossly intact. Results CBC & Chem 7: 11/23/16 15:50 11/24/16 07:40 Labs: Abnormal Lab Results - Last 24 Hours (Table) 11/24/16 Range/Units 07:40 AST 139 H (14-36) U/L ALT 144 H (9-52) U/L Alkaline Phosphatase 195 H (38-126) U/L Total Protein 5.9 L (6.3-8.2) g/dL Albumin 3.1 L (3.5-5.0) g/dL Thrombosis Risk Factor Assmnt - DVT/VTE Prophylaxis DVT/VTE Prophylaxis: Pharmacologic Prophylaxis ordered - Choose All That Apply Any of the Below Risk Factors Present?: Yes Each Factor Represents 1 point: Obesity (BMI >25), Swollen legs (current) Other Risk Factors: Yes Each Risk Factor Represents 2 Points: Malignancy Each Risk Factor Represents 3 Points: Age 75 years or older Other congenital or acquired thrombophilia - If yes, enter type in comment: No Thrombosis Risk Factor Assessment Total Risk Factor Score: 7 Thrombosis Risk Factor Assessment Level: High Risk Assessment and Plan Plan: 1. Sepsis and urinary tract infection. Continue Levaquin. Urine culture is in process. 2. Recent right hip arthroplasty. Consult with Dr. Mina. Physical therapy and occupational therapy ordered. Continue Xarelto for DVT prophylaxis. Incentive spirometry will be ordered. Continue Raymond for pain 3. Elevated liver function tests. Acute hepatitis panel is negative. Abdominal ultrasound ordered. 4. Hypertension. Continue hydralazine, Aldactone and Toprol-XL, Lasix. 5. Hypothyroidism. Continue Synthroid. 6. Gastroesophageal reflux disease and GI prophylaxis. Continue omeprazole. 7. Gout unspecified. Continue allopurinol. 8. DVT prophylaxis. Continue Xarelto. Patient will be admitted to the hospital for a minimum of 2 night stay. Discharge plan: Return home with [facility] homecare Impression and plan of care have been directed as dictated by the signing physician. Jaelyn Milligan nurse practitioner acting as scribe for signing physician. Time with Patient: Greater than 30
[2016-11-24] MEDS ORDERED: LEVOFLOXACIN 250MG-D5W PMX 250 MG in DEXTROSE/WATER 1 50ML.BAG IVPB SCH (16:00)
[2016-11-24] MEDS ORDERED: LEVOFLOXACIN 500MG-D5W PMX 500 MG in DEXTROSE/WATER 1 100ML.BAG IVPB SCH (16:00)
--- NOTE | 2016-11-24 16:40 | P.CNOR ---
History of Present Illness - [facility] Consult date: 11/24/16 Consult reason: other History of present illness: This is a 76-year-old female who was seen and examined today at bedside. Patient was recently [facility] where she underwent an elective right total hip arthroplasty by Dr. Mina. Patient was discharged to home with home services postop day #1. She's been doing very wel working with a home physical therapy. Over the last day or so she's noticed flulike symptoms, including a fever. She reported to the ER [facility] yesterday afternoon with regards to this. She had multiple lab tests done, including a urinalysis. It was positive for UTI, she was admitted under the internal medicine group, our orthopedic team was consulted with regards to the recent hip surgery. Patient is seen today at bedside, she's doing very well she states with regards to the hip. She denies any new increase in pain in the right hip. She denies any redness involving the incision or drainage or erythema. She denies any other orthopedic issues at this time. Patient denies any lightheadedness, headache, lightheadedness, chest pain, shortness of breath. Review of Systems Constitutional: Reports as per HPI Past Medical History Past Medical History: Cancer, GERD/Reflux, Hypertension, Osteoarthritis (OA), Renal Disease, Thyroid Disorder Additional Past Medical History / Comment(s): hx. skin cancer, gout, ankle edema , chronic kidney disease stage III History of Any Multi-Drug Resistant Organisms: None Reported Past Surgical History: Cholecystectomy, Joint Replacement Additional Past Surgical History / Comment(s): parathyroid removed, left knee replaced, TOTAL RT HIP 11-09-16 Past Anesthesia/Blood Transfusion Reactions: No Reported Reaction Past Psychological History: Anxiety Smoking Status: Former smoker Past Alcohol Use History: None Reported Additional Past Alcohol Use History / Comment(s): on & off smoker for 10 yrs., hasn't smoked in over 20 yrs. Past Drug Use History: None Reported - Past Family History Sister(s) Family Medical History: Cancer Additional Family Medical History / Comment(s): BREAST CANCER Father Family Medical History: Myocardial Infarction ([place]) Additional Family Medical History / Comment(s): FROM [place] AT GE 57 Mother Family Medical History: Cancer Additional Family Medical History / Comment(s): Monitored at age 74 with history of CERVICAL CANCER/METS, COPD, CHF Brother(s) Additional Family Medical History / Comment(s): Patient has one brother with diabetes. Daughter(s) Additional Family Medical History / Comment(s): Patient has 2 daughters. One has no major medical problems. One has history of irregular heartbeat. Son(s) Additional Family Medical History / Comment(s): Patient has 2 sons with no major medical problems. Medications and Allergies Home Medications Medication Instructions Recorded Confirmed Type ALPRAZolam [Xanax] 0.5 mg PO DAILY PRN 11/30/14 11/23/16 History Cholecalciferol [Vitamin D3] 2,000 unit PO BID 11/30/14 11/23/16 History Cyanocobalamin [Vitamin B-12] 500 mcg PO DAILY@1200 11/30/14 11/23/16 History Furosemide [Lasix] 40 mg PO BID 11/30/14 11/23/16 History traMADol HCl [Ultram] 50 mg PO Q6H PRN 11/30/14 11/23/16 History Allopurinol [Zyloprim] 150 mg PO Q48H 11/02/16 11/23/16 History Levothyroxine Sodium [Synthroid] 50 mcg PO DAILY 11/02/16 11/23/16 History Melatonin 5 mg PO HS 11/02/16 11/23/16 History Metoprolol Succinate [Toprol XL] 50 mg PO DAILY@1100 11/02/16 11/23/16 History Omeprazole 20 mg PO DAILY@1100 11/02/16 11/23/16 History Spironolactone [Aldactone] 25 mg PO DAILY@1100 11/02/16 11/23/16 History hydrALAZINE HCL [Apresoline] 25 mg PO BID@1100,2100 11/02/16 11/23/16 History HYDROcodone/APAP 7.5-325MG [[place] 1 - 2 tab PO Q6HR PRN 11/23/16 11/23/16 History 7.5] Allergies Allergy/AdvReac Type Severity Reaction Status Date / Time No Known Allergies Allergy Verified 11/23/16 15:37 Physical Examination Right lower extremity: Incision is clean, dry and intact. I did remove the tape from the incision. No significant ecchymosis or soft tissue swelling present around the hip. Plantar flexion, dorsiflexion, EHL, FHL are intact. Logroll maneuver reproduces no pain in the right hip. Sensory exam to light touch throughout the extremities intact. Cap refills less than 3 seconds. Results - Labs Labs: Abnormal Lab Results - Last 24 Hours (Table) 11/24/16 Range/Units 07:40 AST 139 H (14-36) U/L ALT 144 H (9-52) U/L Alkaline Phosphatase 195 H (38-126) U/L Total Protein 5.9 L (6.3-8.2) g/dL Albumin 3.1 L (3.5-5.0) g/dL Result Diagrams: 11/23/16 15:50 11/24/16 07:40 - Diagnostic results Hip x-ray: report reviewed, image reviewed Assessment and Plan Plan: Imagin views of the right hip were obtained today for postop evaluation. Images reveal good hardware placement involving the right hip, no obvious lucencies other signs of loosening present. Assessment: 1. History of recent right total hip arthroplasty (11/09/2016) 2. Urinary tract infection 3. Elevated liver enzymes 4. Other medical comorbidities Plan: 1. I did discuss this case, including physical exam findings and imaging studies with Dr. Mina. Right hip is stable at this time, no acute changes. Advised patient she needs to be up walking with a walker why she is here for her hospital stay. 2. Daily dressing changes 3. Pain control 4. GI and DVT prophylaxis, continue Xarelto. If medical's concern with elevated creatinine we may switch DVT prophylaxis medication 5. Other medical specialty recommendations 6. We will be available for any further questions Time with Patient: Less than 30
--- NOTE | 2016-11-24 17:36 | XR ---
EXAMINATION TYPE: XR Hip Complete RT DATE OF EXAM: 11/24/2016 3:02 PM COMPARISON: NONE HISTORY: 76-year-old female postoperative evaluation TECHNIQUE: 2 views FINDINGS: Images show placement of right hip total arthroplasty. Both acetabular cup and femoral stem component s of the prosthesis appear well seated without periprosthetic fracture. Alignment is grossly anatomic . Some residual soft tissue gas is present laterally and should be correlated clinically. IMPRESSION: 1. Some soft tissue gas laterally. Clinical correlation recommended. Probable residual postoperative air. 2. Otherwise, uncomplicated appearance to the right total hip arthroplasty.
--- NOTE | 2016-11-24 17:38 | US ---
EXAMINATION TYPE: US abdomen limited DATE OF EXAM: 11/24/2016 3:20 PM COMPARISON: NONE CLINICAL HISTORY: 76-year-old female with elevated LFT. Abnormal labs. GB removed about 10 years ago. TECHNIQUE: Multiple sonographic images of the right upper quadrant are obtained. FINDINGS: Liver Length: 15.5 cm CHD: 0.5 cm Right Kidney: 9.9 x 5.3 x 4.9 cm Pancreas: Suboptimal visualization of the pancreatic tail secondary to shadowing from bowel gas. Liver: Some limited views show no gross abnormality. Gallbladder: Surgically absent CHD: wnl Right Kidney: No hydronephrosis. IMPRESSION: 1. Status post cholecystectomy. No biliary ductal dilatation. 2. Limited views of the liver show no gross abnormality.
[2016-11-24] MEDS: MELATONIN 5 MG TABLET PO SCH (22:03)
[2016-11-24] MEDS: HYDROcodone/APAP 7.5-325MG 1 EACH TAB PO PRN (22:04)
[2016-11-25] MEDS: HYDROcodone/APAP 7.5-325MG 1 EACH TAB PO PRN ×2 (05:39→13:38)
[2016-11-25] MEDS: LEVOTHYROXINE 50 MCG TAB PO SCH (05:48)
[2016-11-25] MEDS: CHOLECALCIFEROL 1,000 UNIT TAB PO SCH ×2 (07:54→16:22)
[2016-11-25] MEDS: FUROSEMIDE 40 MG TAB PO SCH (07:55)
[2016-11-25] MEDS: RIVAROXABAN 10 MG TAB PO SCH (07:56)
[2016-11-25] MEDS: DOCUSATE 100 MG CAP PO SCH (07:56)
[2016-11-25] MEDS: SODIUM CHLORIDE 0.9% 1,000 ML IV SCH (07:57)
[2016-11-25 09:02] LABS: ALT 102 U/L (9-52); AST 67 U/L (14-36); Alkaline Phosphatase 167 U/L (38-126); Anion Gap 11 mmol/L; Blood Urea Nitrogen 14 mg/dL (7-17); Calcium 8.7 mg/dL (8.4-10.2); Carbon Dioxide 24 mmol/L (22-30); Chloride 107 mmol/L (98-107); Glucose 132 mg/dL (74-99); Non-African American GFR(MDRD) 56 (>60 ml/min/1.73 sqM); Potassium 3.8 mmol/L (3.5-5.1); Sodium 142 mmol/L (137-145); Total Bilirubin 0.6 mg/dL (0.2-1.3); Total Protein 6.2 g/dL (6.3-8.2)
[2016-11-25] MEDS: hydrALAZINE HCL 25 MG TAB PO SCH (10:50)
[2016-11-25] MEDS: SPIRONOLACTONE 25 MG TAB PO SCH (10:51)
[2016-11-25] MEDS: CYANOCOBALAMIN 500 MCG TAB PO SCH (10:51)
[2016-11-25] MEDS: METOPROLOL SUCCINATE (ER) 50 MG TAB.ER.24H PO SCH (10:51)
[2016-11-25] MEDS: PANTOPRAZOLE 40 MG TABLET PO SCH (10:51)
[2016-11-25] MEDS ORDERED: LEVOFLOXACIN 250 MG TAB PO SCH (16:00)
[2016-11-25 16:18] VITALS: BP 127/60; PULSE 97; RESP 19; TEMP 97.3
== END 2016-11-25 17:54 | disposition home health service (06) | DRG 872 ==
LOC: EC 15:08 → 4MS4W 17:22
PROVIDERS: ADMIT Family Medicine; ATTEND Family Medicine
DX: A41.9 Sepsis, unspecified organism (principal); J44.9 Chronic obstructive pulmonary disease, unspecified; N39.0 Urinary tract infection, site not specified; K21.9 Gastro-esophageal reflux disease without esophagitis; E86.0 Dehydration; N18.3 Chronic kidney disease, stage 3 (moderate); I12.9 Hypertensive chronic kidney disease with stage 1 through stage 4 chronic kidney disease, or unspecified chronic kidney disease; E89.2 Postprocedural hypoparathyroidism; R74.8 Abnormal levels of other serum enzymes; R60.0 Localized edema; E03.9 Hypothyroidism, unspecified; F41.1 Generalized anxiety disorder; M19.90 Unspecified osteoarthritis, unspecified site; M10.9 Gout, unspecified; Z85.828 Personal history of other malignant neoplasm of skin; Z83.3 Family history of diabetes mellitus; Z96.641 Presence of right artificial hip joint; Z82.5 Family history of asthma and other chronic lower respiratory diseases; Z82.49 Family history of ischemic heart disease and other diseases of the circulatory system; Z80.3 Family history of malignant neoplasm of breast; Z87.891 Personal history of nicotine dependence; Z79.01 Long term (current) use of anticoagulants; Z79.891 Long term (current) use of opiate analgesic; Z79.899 Other long term (current) drug therapy; Z80.49 Family history of malignant neoplasm of other genital organs; Z90.49 Acquired absence of other specified parts of digestive tract; Z96.652 Presence of left artificial knee joint; Z86.39 Personal history of other endocrine, nutritional and metabolic disease
CPT/HCPCS: 36415; 71020; 73502; 76705; 80053; 80074; 81001; 83605; 83690; 85025; 87040; 87086; 87502; 96361; 96365; 99285

== ENCOUNTER → 2017-11-16 | Outpatient (CLI) | payer MEDICARE, OTHER ==
--- NOTE | 2017-11-17 11:27 | ECHOF ---
Referral Reason:[id number] R60.0 EDEMA MEASUREMENTS -------- HEIGHT: 154.9 cm WEIGHT: 124.7 kg BP: 137/80 RVIDd: 2.8 cm (< 3.3) IVSd: 1.2 cm (0.6 - 1.1) LVIDd: 3.6 cm (3.9 - 5.3) LVPWd: 1.1 cm (0.6 - 1.1) IVSs: 1.5 cm LVIDs: 2.6 cm LVPWs: 1.4 cm LAESV Index (A-L): 14.45 ml/m Ao Diam: 2.8 cm (2.0 - 3.7) AV Cusp: 1.6 cm (1.5 - 2.6) LA Diam: 3.0 cm (2.7 - 3.8) MV E Jacob: 0.66 m/s MV DecT: 247 ms MV A Jacob: 0.98 m/s MV E/A Ratio: 0.67 RAP: 5.00 mmHg RVSP: 18.87 mmHg FINDINGS -------- Sinus rhythm. This was a technically difficult study with suboptimal views. The left ventricular size is normal. There is mild concentric left ventricular hypertrophy. Overa ll left ventricular systolic function is normal with, an EF between 55 - 60 %. The right ventricle is normal in size and function. Normal LA size by volume 22+/-6 ml/m2. The right atrium is normal in size. 3 ml of Lumason used for enhancement of images. There is mild aortic valve sclerosis. There is no evidence of aortic regurgitation. There is no e vidence of aortic stenosis. The mitral valve leaflets are mildly thickened. There is trace to mild mitral regurgitation. Trace tricuspid regurgitation present. Right ventricular systolic pressure is normal at < 35 mmHg. There is no evidence of pulmonary hypertension. The pulmonic valve was not well visualized. The aortic root size is normal. Normal inferior vena cava with normal inspiratory collapse consistent with estimated right atrial pre ssure of 5 mmHg. There is no pericardial effusion. CONCLUSIONS -------- 1. Sinus rhythm. 2. This was a technically difficult study with suboptimal views. 3. The left ventricular size is normal. 4. There is mild concentric left ventricular hypertrophy. 5. Overall left ventricular systolic function is normal with, an EF between 55 - 60 %. 6. Normal LA size by volume 22+/-6 ml/m2. 7. 3 ml of Lumason used for enhancement of images. 8. There is mild aortic valve sclerosis. 9. The mitral valve leaflets are mildly thickened. 10. There is trace to mild mitral regurgitation. 11. Trace tricuspid regurgitation present. 12. Right ventricular systolic pressure is normal at < 35 mmHg. 13. There is no evidence of pulmonary hypertension. 14. The pulmonic valve was not well visualized. 15. The aortic root size is normal. 16. There is no pericardial effusion. SEEING EYE DOG TEACHER: Nelson Avila RDCS
== END | disposition home or self-care (01) ==
LOC: RADECHMAIN 14:44
PROVIDERS: ATTEND Family Medicine
DX: I08.1 Rheumatic disorders of both mitral and tricuspid valves (principal); I10 Essential (primary) hypertension
CPT/HCPCS: C8929; Q9950; 93306

== ENCOUNTER → 2017-11-29 | Outpatient (CLI) | payer MEDICARE, OTHER ==
[2017-11-29 15:14] LABS: Calcium 9.6 mg/dL (8.4-10.2); Phosphorus 3.7 mg/dL (2.5-4.5); Potassium 4.9 mmol/L (3.5-5.1); Uric Acid 6.3 mg/dL (3.7-7.4)
[2017-11-29 19:04] LABS: Parathyroid Hormone Intact 69.5 pg/mL (14.0-72.0)
== END | disposition home or self-care (01) ==
LOC: LABWHC1 14:17
PROVIDERS: ATTEND Family Medicine
DX: N18.3 Chronic kidney disease, stage 3 (moderate) (principal)
CPT/HCPCS: 36415; 80048; 82043; 82306; 82570; 83735; 83970; 84100; 84550

== ENCOUNTER → 2017-11-29 | Outpatient (CLI) | payer MEDICARE, OTHER ==
[2017-11-29 15:04] LABS: Basophils % (A) 1 %; Eosinophils # (A) 0.1 k/uL (0-0.7); Eosinophils % (A) 2 %; HCT 40.8 % (34.0-46.0); Lymphocytes % (A) 20 %; MCH 27.4 pg (25.0-35.0); MCHC 31.7 g/dL (31.0-37.0); MCV 86.3 fL (80.0-100.0); Mean Platelet Volume 7.9; Monocytes # (A) 0.2 k/uL (0-1.0); Monocytes % (A) 5 %; Neutrophils # (A) 3.4 k/uL (1.3-7.7); Neutrophils % (A) 71 %; Platelet Count 196 k/uL (150-450); RBC 4.73 m/uL (3.80-5.40); RDW 15.4 % (11.5-15.5); WBC 4.8 k/uL (3.8-10.6)
[2017-11-29 15:07] LABS: INR 1.1 (<1.2); Prothrombin Time 10.6 sec (9.0-12.0)
== END | disposition home or self-care (01) ==
LOC: LABPAT 14:12
PROVIDERS: ATTEND Orthopaedic Surgery
DX: Z01.812 Encounter for preprocedural laboratory examination (principal); I10 Essential (primary) hypertension; M17.11 Unilateral primary osteoarthritis, right knee; Z51.81 Encounter for therapeutic drug level monitoring; Z79.01 Long term (current) use of anticoagulants
CPT/HCPCS: 85025; 85610; 87070; 93005

== ENCOUNTER 2017-12-20 07:30 | Inpatient (IN) | payer MEDICARE, OTHER ==
[2017-12-03 11:54] VITALS: BMI 53.8
--- NOTE | 2017-12-19 12:31 | HP ---
HISTORY AND PHYSICAL REASON FOR ADMISSION: Surgery 12/20/2017. Lisa Campos is a 77-year-old patient seen with symptomatic right knee osteoarthritis. We discussed treatment options. She elected to proceed with right total knee arthroplasty. Consent regarding the procedure was obtained. Medical clearance was provided by Dr. Lazar. PAST MEDICAL HISTORY: Hypertension, hypothyroidism, gastroesophageal reflux disease. PAST SURGICAL HISTORY: Left total knee arthroplasty, right total hip arthroplasty. MEDICATIONS: Furosemide, levothyroxine, metoprolol, Prilosec, spironolactone, gabapentin. ALLERGIES: None reported. SOCIAL HISTORY: The patient denies tobacco use. PHYSICAL EXAMINATION: Evaluation of the right knee: Range of motion is -2/3 to 115 degrees. There is tenderness along the medial joint line. Positive medial Tereso's. Crepitus on the medial patellofemoral compartments. Range of motion. Ligaments are stable. Hip rotation without pain. Distal neurovascular exam is intact. RADIOGRAPHS: Radiographs of the right knee were obtained and revealed moderate medial lateral compartment osteoarthritis and severe patellofemoral compartment osteoarthritis. IMPRESSION: 1. Right knee osteoarthritis. 2. Hypertension. 3. Gastroesophageal reflux disease. 4. Hypothyroidism. 5. Obesity. PLAN: Right total knee arthroplasty. Surgery scheduled for 12/20/17. MMODL / IJN: [id number] /
[~2017-12-20 07:30] MED LIST changes: -ACETAMINOPHEN TAB 500 MG TAB PO ONE; -FAMOTIDINE 20 MG/2 ML VIAL IV PRN; +HYDROmorphone 0.5 MG/0.5 ML SYRINGE IVP PRN; -HYDROmorphone 1 MG/ML 1 ML SYRINGE IVP PRN; -LACTATED RINGERS 1,000 ML IV SCH; -LIDOCAINE 1% 20 ML VIAL (10MG/ML) FOR IV START INTRADERMA PRN; -MELOXICAM 7.5 MG TAB PO ONE; +MORPHINE SULFATE 2 MG/ML SYRINGE IV PRN; -ONDANSETRON 4 MG/2 ML VIAL IVP PRN; -TRANEXAMIC ACID 1,000 MG in SODIUM CHLORIDE 0.9% 100 ML IVPB ONE; +TRANEXAMIC ACID 1,000 MG in SODIUM CHLORIDE 0.9% 50 ML IVPB ONE; -ceFAZolin 3 GM in SODIUM CHLORIDE 0.9% 100 ML IVPB ONE
[2017-12-20] MEDS ORDERED: LIDOCAINE 1% 20 ML VIAL (10MG/ML) FOR IV START INTRADERMA ONE (14:38)
[2017-12-20] MEDS: LACTATED RINGERS 1,000 ML IV SCH ×2 (14:38→23:35)
[2017-12-20] MEDS: ACETAMINOPHEN TAB 500 MG TAB PO ONE ×2 (14:39→18:20)
[2017-12-20] MEDS: MELOXICAM 7.5 MG TAB PO ONE ×2 (14:39→18:20)
[2017-12-20] MEDS ORDERED: ONDANSETRON 4 MG/2 ML VIAL ONE (14:56)
[2017-12-20] MEDS ORDERED: ONDANSETRON 4 MG/2 ML VIAL IVP ONE (15:00)
[2017-12-20] MEDS ORDERED: ROPIVACAINE 246.25 MG, EPINEPHrine 0.5 MG, KETOROLAC 30 MG, cloNIDine HCL/PF 80 MCG, WA... MISCELLANE ONE ×5 (15:18)
[2017-12-20] MEDS ORDERED: SODIUM CHLORIDE 0.9% 100 ML BAG ONE (16:00)
[2017-12-20] MEDS ORDERED: TRANEXAMIC ACID 1,000 MG/10 ML VIAL ONE (16:00)
[2017-12-20] MEDS ORDERED: fentaNYL (PF) 50 MCG/ML 2 ML AMP ONE (16:00)
[2017-12-20] MEDS ORDERED: diphenhydrAMINE 50 MG/ML 1 ML VIAL ONE (16:00)
[2017-12-20] MEDS ORDERED: MIDAZOLAM 2 MG/2 ML VIAL ONE (16:00)
[2017-12-20] MEDS ORDERED: LACTATED RINGERS 1,000 ML IV ONE ×4 (17:06→18:04)
[2017-12-20] MEDS ORDERED: ONDANSETRON 4 MG/2 ML VIAL IVP PRN (18:11)
[2017-12-20] MEDS ORDERED: NALOXONE 0.4 MG/ML 1 ML VIAL IV PRN (18:11)
[2017-12-20] MEDS ORDERED: HYDROcodone/APAP 7.5-325MG 1 EACH TAB PO PRN (18:11)
[2017-12-20] MEDS ORDERED: hydrOXYzine PAMOATE 25 MG CAP PO PRN (18:11)
[2017-12-20] MEDS ORDERED: MORPHINE SULFATE/PF 10MG/10ML VL IVP PRN ×3 (18:11)
--- NOTE | 2017-12-20 18:11 | P.OP ---
Date of Procedure: 12/20/17 Preoperative Diagnosis: Right knee osteoarthritis Postoperative Diagnosis: Right knee osteoarthritis Procedure(s) Performed: Right total knee arthroplasty Implants: 1. Max persona size 7 cruciate retaining narrow right cemented femur 2. Max persona size D right cemented tibia 3. Max persona 12 mm medial congruent polyethylene tibial insert 4. Max persona 35 mm all polyethylene cemented patella Anesthesia: local, spinal Surgeon: Alfredo Mina New Car Get Ready Mechanic #1: Major Tanner Estimated Blood Loss (ml): 75 Pathology: other (Bone) Condition: stable Disposition: PACU Indications for Procedure: 77-year-old patient seen with symptomatic right knee osteoarthritis. After treatment options were discussed, she elected to proceed with total knee arthroplasty. Operative Findings: See description of procedure Description of Procedure: Patient was taken to the operative suite. Patient underwent a spinal anesthetic by the department of anesthesia. Patient was given preoperative IV intake antibiotics and TXA. A well-padded tourniquet was placed about the right lower extremity. The lower extremity was then prepped and draped in the normal sterile orthopedic fashion. The extremity was elevated, a tourniquet was insufflated to 300. A standard anterior incision was made sharply through skin. Dissection was taken down through the subcutaneous soft tissues down to the extensor mechanism. A medial arthrotomy was performed, patella was everted and knee was flexed. There was advanced osteoarthritis noted. A proximal tibial cutting guide was positioned. Proximal tibial cut was made. A distal intramedullary femoral cutting guide was positioned, distal femoral cut made. We placed the appropriate sizing guide and selected the appropriate size. A distal 4-in-1 femoral cutting block was positioned, distal femoral cuts were made. We now placed a trial femoral component into position, along with an appropriate size tibial tray and insert. We now took the knee through range of motion and had full extension good flexion and good overall soft tissue balance noted. The patella was everted and a flush cut made with patellar quad tendon. We templated the patella, appropriate drill holes were made. An appropriate trial patella was positioned, knee was taken through full range of motion with the patella tracking very nicely. The trial patella was removed. Drill holes were made through the femoral component. All trial components were removed after marking off the appropriate rotation of the tibia. Retractors were now positioned along the proximal tibia. An appropriate keel punch was made with the appropriate size tibial guide. At this point appropriate size implants were chosen and opened. The joint was irrigated copiously with pulse lavage mechanical irrigation. The deep soft tissues were infiltrated with local analgesic. We mixed antibiotic methylmethacrylate. Once the methyl methacrylate was ready, the tibial component was cemented into place removing any excess methylmethacrylate. The femoral component was cemented into place removing the removing any excess methylmethacrylate. We then inserted the appropriate size polyethylene tibial insert. We made sure that it was locked into position. We took the knee into full extension, and then back in a flexion making sure we had removed any excess methylmethacrylate. The patellar component was then cemented down and secured with clamp. Excess methylmethacrylate removed. We kept the knee in full extension, patellar clamp in position until methylmethacrylate had hardened. Once it had hardened the patellar clamp was removed. The knee was taken through full range of motion. The patella tracked nicely. There was good soft tissue balancing. The tourniquet was now released. Additional hemostasis was achieved via electrocautery. A second gram of TXA was given. The superficial soft tissues were infiltrated local analgesic. The wound was irrigated with pulse lavage mechanical irrigation. The extensor mechanism was repaired with Vicryl. We checked the repair with range of motion and it was stable. The subcutaneous soft tissues were repaired with Vicryl in layers. The skin was approximated with pernio/Dermabond. Sterile dressings were applied followed by loose web roll and Jaycob bandage. The patient was transferred to a bed, and taken to recovery in stable and satisfactory condition. Mark GUERRERO assisted with the procedure.
--- NOTE | 2017-12-20 18:30 | XR ---
EXAMINATION TYPE: XR knee limited RT DATE OF EXAM: 12/20/2017 COMPARISON: NONE HISTORY: Postop TECHNIQUE: 2 views FINDINGS: There is a right knee prosthesis. Components are in anatomic position. IMPRESSION: No complicating process seen.
--- NOTE | 2017-12-20 20:33 | P.CONS ---
History of Present Illness - Reason for Consult Consult date: 12/20/17 postoperative medical management Requesting physician: Alfredo Mina - Chief Complaint elective right total knee arthroplasty - History of Present Illness 77 year old female with medical history of Hypertension, CKD III, and hypothyroidism. Patient presented electively for planned right total knee arthroplasty due to advanced severe degenerative joint disease resulting in intolerable pain affecting activities of daily living was not responsive to conservative measures. Patient has tolerated procedure well, she is being seen per primary team request on day 0 post operatively, she did well, denies any nausea or vomiting denies any headaches denies any chest pain or trouble breathing. She reports that pain is well controlled over her right knee. She has tolerated clear liquids by mouth intake, he did not pass urine yet. Currently she reports that pain is well controlled. Currently patient denies any active medical concerns Review of Systems Constitutional: Patient denies fever, denies chills, denies night sweating, denies significant weight changes Eyes: Patient denies visual changes, denies eye pain ENT: Patient denies ear pain, denies rhinorrhea, denies sore throat Cardiovascular: Patient denies chest pain, denies exertional dyspnea, denies peripheral leg edema, denies orthopnea, denies paroxysmal nocturnal dyspnea Respiratory:Patient denies cough, denies wheezing, denies shortness of breath Gastrointestinal: Patient denies diarrhea, denies constipation, denies nausea , denies vomiting, denies abdominal pain Genitourinary: Patient denies dysuria, denies hematuria, denies changes in urinary habits, denies genital lesions Musculoskeletal: Patient denies muscle pain, reports chronic low back pain and chronic right knee pain Psychiatric: Patient denies changes in mood or memory, denies suicidal ideation, denies anxiety Endocrine: Patient denies heat intolerance, denies cold intolerance, denies excessive thirst, denies polyuria Neurological: Patient denies focal neurologic deficits, denies weakness, denies numbness, denies tingling Hem/Lymphatic: Patient denies bleeding tendency, denies bruising, denies swollen lymph glands Allergic/Immun: Patient denies recent allergic reactions Skin: Patient denies rashes, denies pruritis, denies ulcers Past Medical History Past Medical History: Cancer, GERD/Reflux, Hypertension, Osteoarthritis (OA), Renal Disease, Thyroid Disorder Additional Past Medical History / Comment(s): hx. skin cancer (melanoma), gout, ankle edema, chronic kidney disease stage III History of Any Multi-Drug Resistant Organisms: None Reported Past Surgical History: Cholecystectomy, Joint Replacement, Tubal Ligation Additional Past Surgical History / Comment(s): parathyroid removed, left knee replaced, TOTAL RT HIP 11-09-16 Past Anesthesia/Blood Transfusion Reactions: No Reported Reaction Past Psychological History: Anxiety Smoking Status: Former smoker Past Alcohol Use History: None Reported Additional Past Alcohol Use History / Comment(s): on & off smoker for 10 yrs, hasn't smoked in over 20 yrs. Past Drug Use History: None Reported - Past Family History Sister(s) Family Medical History: Cancer Additional Family Medical History / Comment(s): BREAST CANCER Father Family Medical History: Myocardial Infarction ([place]) Additional Family Medical History / Comment(s): FROM [place] AT GE 57 Mother Family Medical History: Cancer Additional Family Medical History / Comment(s): Monitored at age 74 with history of CERVICAL CANCER/METS, COPD, CHF Brother(s) Additional Family Medical History / Comment(s): Patient has one brother with diabetes. Daughter(s) Additional Family Medical History / Comment(s): Patient has 2 daughters. One has no major medical problems. One has history of irregular heartbeat. Son(s) Additional Family Medical History / Comment(s): Patient has 2 sons with no major medical problems. Medications and Allergies Home Medications and Allergies Comment(s): reviewed Home Medications Medication Instructions Recorded Confirmed Type ALPRAZolam [Xanax] 0.5 mg PO DAILY PRN 11/30/14 12/20/17 History Cholecalciferol [Vitamin D3] 2,000 unit PO BID 11/30/14 12/20/17 History Cyanocobalamin [Vitamin B-12] 500 mcg PO DAILY@1200 11/30/14 12/20/17 History Furosemide [Lasix] 40 mg PO DAILY 11/30/14 12/20/17 History traMADol HCl [Ultram] 50 mg PO Q6H PRN 11/30/14 12/20/17 History Levothyroxine Sodium [Synthroid] 50 mcg PO DAILY 11/02/16 12/20/17 History Metoprolol Succinate [Toprol XL] 50 mg PO DAILY@1100 11/02/16 12/20/17 History Omeprazole 20 mg PO DAILY@1100 11/02/16 12/20/17 History Spironolactone [Aldactone] 25 mg PO DAILY@1100 11/02/16 12/20/17 History Allopurinol [Zyloprim] 100 mg PO DAILY 12/03/17 12/20/17 History Gabapentin [Neurontin] 300 mg PO TID 12/03/17 12/20/17 History Losartan Potassium 50 mg PO HS 12/03/17 12/20/17 History Tumeric 500 mg PO DAILY 12/03/17 12/20/17 History Allergies Allergy/AdvReac Type Severity Reaction Status Date / Time No Known Allergies Allergy Verified 12/20/17 14:23 Physical Exam Vitals: Vital Signs Temp Pulse Resp BP Pulse Ox 12/20/17 18:49 54 L 16 119/54 97 12/20/17 18:34 52 L 16 119/58 98 12/20/17 18:19 56 L 16 117/67 96 12/20/17 18:04 97.4 F L 58 L 16 109/53 99 12/20/17 14:32 97.7 F 70 20 149/70 96 Intake and Output 12/20/17 12/20/17 12/20/17 06:59 14:59 22:59 Intake Total 1850 Output Total 75 Balance 1775 Intake: IV 1850 Output: Estimated Blood Loss 75 Constitutional: No acute distress, conversant, pleasant, morbidly obese Eyes: Anicteric sclerae, moist conjunctiva, no lid-lag Pupils equal round reactive to light ENMT: NC/AT Oropharynx clear, no erythema, exudates Neck: Supple, FROM, no masses, or JVD No carotid bruits No thyromegaly Lungs: Clear to auscultation Clear to percussion Normal respiratory effort, no accessory muscle use Cardiovascular: Heart regular in rate and rhythm, No murmurs, gallops, or rubs No peripheral edema Abdominal: Soft Nontender, no guarding, rebound or rigidity Abdomen moving with respiration Normoactive bowel sounds No hepatomegaly, No splenomegaly No palpable mass No abdominal wall hernia noted Skin: Normal temperature, tone, texture, turgor No induration No subcutaneous nodules No rash, lesions No ulcers Extremities: No digital cyanosis No clubbing Pedal pulses intact and symmetrical Radial pulses intact and symmetrical No calf tenderness Psychiatric: Alert and oriented to person, place and time Appropriate affect fair judgment Neuro Muscles Strength 5/5 in all extremities (except for limited exam over right lower extremity due to recent surgery) Sensation to light touch grossly present throughout Cranial nerves II-XII grossly intact No focal sensory deficits Lymphatics: no palpable cervical or supraclavicular , or inguinal lymph nodes Assessment and Plan Assessment: 77-year-old female with history of hypertension hypothyroid and CK D stage III presented for elective right total knee arthroplasty due to severe degenerative joint disease failed conservative therapy, patient tolerated procedure well and being seen in postoperative day 0 per orthopedic request for postoperative medical management. Plan: #Right knee degenerative joint disease status post right total knee arthroplasty postoperative day #0 Pain control, DVT prophylaxis per orthopedics #Hypertension currently controlled Continue home medications #CK D stage III Check renal function Avoid nephrotoxic medications #Hypothyroidism Continue with Synthroid #Morbid obesity Patient counseled regarding lifestyle modification and weight loss #DVT prophylaxis, on Lovenox per orthopedics Surrogate decision-maker: Patient daughter Leonor CODE STATUS: Full code Follow-up morning labs Home Medications reconciled Thank you for allowing us to participate in the care of this patient. Do not hesitate to contact us with questions. Someone can be reached from the [facility] hospitalist group at all hours of the day at [phone].
[2017-12-20] MEDS ORDERED: ALPRAZolam 0.5 MG TAB PO PRN (20:34)
[2017-12-20] MEDS: traMADol 50 MG TAB PO SCH (21:31)
[2017-12-20] MEDS: CHOLECALCIFEROL 1,000 UNIT TAB PO SCH (21:32)
[2017-12-20] MEDS: LOSARTAN 50 MG TAB PO SCH (21:33)
[2017-12-20] MEDS: ENOXAPARIN 30 MG/0.3 ML SYRINGE SQ SCH (21:33)
[2017-12-20] MEDS: GABAPENTIN 300 MG CAP PO SCH (21:34)
[2017-12-20] MEDS: SENNOSIDES-DOCUSATE SODIUM 1 EACH TAB PO SCH (21:34)
[2017-12-20] MEDS: SODIUM CHLORIDE 0.9% 1,000 ML IV SCH (23:36)
[2017-12-21] MEDS: LEVOTHYROXINE 50 MCG TAB PO SCH (05:58)
[2017-12-21 07:38] LABS: Basophils % (A) 0 %; Eosinophils # (A) 0.1 k/uL (0-0.7); Eosinophils % (A) 2 %; HCT 33.3 % (34.0-46.0); HGB 10.4 gm/dL (11.4-16.0); Lymphocytes % (A) 15 %; MCH 27.1 pg (25.0-35.0); MCHC 31.2 g/dL (31.0-37.0); MCV 86.8 fL (80.0-100.0); Mean Platelet Volume 8.1; Monocytes # (A) 0.4 k/uL (0-1.0); Monocytes % (A) 6 %; Neutrophils % (A) 76 %; Platelet Count 170 k/uL (150-450); RBC 3.84 m/uL (3.80-5.40); RDW 15.4 % (11.5-15.5); WBC 6.6 k/uL (3.8-10.6)
[2017-12-21 08:07] LABS: Albumin 2.8 g/dL (3.5-5.0); Calcium 8.5 mg/dL (8.4-10.2); Potassium 4.3 mmol/L (3.5-5.1); Total Bilirubin 0.2 mg/dL (0.2-1.3); Total Protein 5.2 g/dL (6.3-8.2)
[2017-12-21] MEDS ORDERED: FAMOTIDINE 20 MG TAB PO SCH (09:00)
[2017-12-21] MEDS: ENOXAPARIN 30 MG/0.3 ML SYRINGE SQ SCH ×2 (10:03→21:10)
[2017-12-21] MEDS: ALLOPURINOL 100 MG TAB PO SCH (10:06)
[2017-12-21] MEDS: CHOLECALCIFEROL 1,000 UNIT TAB PO SCH ×2 (10:07→21:10)
[2017-12-21] MEDS: GABAPENTIN 300 MG CAP PO SCH ×3 (10:08→21:10)
[2017-12-21] MEDS: MELOXICAM 7.5 MG TAB PO SCH (10:08)
[2017-12-21] MEDS: HYDROcodone/APAP 7.5-325MG 1 EACH TAB PO PRN ×2 (10:13→16:12)
[2017-12-21] MEDS: traMADol 50 MG TAB PO SCH ×4 (10:13→21:10)
--- NOTE | 2017-12-21 11:25 | P.PN ---
Subjective Progress Note Date: 12/21/17 Principal diagnosis: Knee pain. Patient just came back to bed, she was walking through the home with physical therapy. Pain is fairly controlled. Objective - Vital Signs Vital signs: Vital Signs Temp 97.9 F 12/21/17 01:52 Pulse 75 12/21/17 01:52 Resp 18 12/21/17 01:52 BP 98/53 12/21/17 01:52 Pulse Ox 95 12/21/17 01:52 Intake & Output 12/20/17 12/21/17 12/21/17 18:59 06:59 18:59 Intake Total 1850 400 120 Output Total 75 25 Balance 1775 375 120 Intake: IV 1850 Intake, IV Titration 400 Amount Sodium Chloride 0.9% 1, 400 000 ml @ 50 mls/hr IV . Q20H ROSEANNA Rx#:[id number] Oral 120 Output: Urine 25 Estimated Blood Loss 75 Other: Voiding Method Toilet # Voids 1 - Exam Constitutional: No acute distress, conversant, pleasant ENMT: Oropharynx clear, no erythema, exudates Lungs: Clear to auscultation, Clear to percussion, Normal respiratory effort, no accessory muscle use Cardiovascular: Heart regular in rate and rhythm, No murmurs, gallops, or rubs, No peripheral edema Abdominal: Soft, Nontender, no guarding, rebound or rigidity, Normoactive bowel sounds, No hepatomegaly, No splenomegaly, No palpable mass - Labs CBC & Chem 7: 12/21/17 07:14 12/21/17 07:14 Labs: Abnormal Lab Results - Last 24 Hours (Table) 12/21/17 12/21/17 Range/Units 07:14 07:14 Hgb 10.4 L (11.4-16.0) gm/dL Hct 33.3 L (34.0-46.0) % BUN 27 H (7-17) mg/dL Creatinine 1.17 H (0.52-1.04) mg/dL Total Protein 5.2 L (6.3-8.2) g/dL Albumin 2.8 L (3.5-5.0) g/dL Assessment and Plan Plan: #Right knee degenerative joint disease status post right total knee arthroplasty postoperative day #1 Pain control, DVT prophylaxis per orthopedics Continue physical therapy #Hypertension currently controlled Continue home medications #CKD stage III Stable Avoid nephrotoxic medications #Hypothyroidism Continue with Synthroid #Morbid obesity Counseled regarding lifestyle modification and weight loss #DVT prophylaxis, on Lovenox per orthopedics Anticipated discharge in 1 day.
[2017-12-21] MEDS: METOPROLOL SUCCINATE (ER) 50 MG TAB.ER.24H PO SCH (13:46)
[2017-12-21] MEDS: SPIRONOLACTONE 25 MG TAB PO SCH (13:47)
[2017-12-21] MEDS: PANTOPRAZOLE 40 MG TABLET PO SCH (13:47)
[2017-12-21] MEDS: CYANOCOBALAMIN 500 MCG TAB PO SCH (13:47)
--- NOTE | 2017-12-21 14:36 | P.PN ---
Subjective Progress Note Date: 12/21/17 Principal diagnosis: s/p right tka Patient seen today resting in hospital bed, she appears comfortable. She was visualized ambulating with therapy, she is doing very well. She denies any headaches, lightheadedness, chest pain or shortness of breath Objective - Vital Signs Vital signs: Vital Signs Temp 97.9 F 12/21/17 01:52 Pulse 75 12/21/17 01:52 Resp 18 12/21/17 01:52 BP 98/53 12/21/17 01:52 Pulse Ox 95 12/21/17 01:52 Intake & Output 12/20/17 12/21/17 12/21/17 18:59 06:59 18:59 Intake Total 1850 400 300 Output Total 75 25 Balance 1775 375 300 Intake: IV 1850 Intake, IV Titration 400 Amount Sodium Chloride 0.9% 1, 400 000 ml @ 50 mls/hr IV . Q20H ROSEANNA Rx#:[id number] Oral 300 Output: Urine 25 Estimated Blood Loss 75 Other: Voiding Method Toilet # Voids 1 - Exam Right lower extremity: Incision is in good condition, nathanael are in good position. Minimal ecchymosis present around the medial and lateral aspects of the incision. A soft, no tenderness with palpation. Plantar flexion, dorsiflexion, EHL, FHL are intact. Dorsalis pedis pulses 2+. Sensory exam to light touch throughout extremities intact. - Labs CBC & Chem 7: 12/21/17 07:14 12/21/17 07:14 Labs: Abnormal Lab Results - Last 24 Hours (Table) 12/21/17 12/21/17 Range/Units 07:14 07:14 Hgb 10.4 L (11.4-16.0) gm/dL Hct 33.3 L (34.0-46.0) % BUN 27 H (7-17) mg/dL Creatinine 1.17 H (0.52-1.04) mg/dL Total Protein 5.2 L (6.3-8.2) g/dL Albumin 2.8 L (3.5-5.0) g/dL Assessment and Plan Plan: Assessment: 1. Postop day 1 status post right total knee arthroplasty Plan: 1. Pain control, we'll discharge home on oral medication 2. GI and DVT prophylaxis, Eliquis 2.5 mg by mouth twice a day 3. Wound care instructions were discussed 4. Home care nursing after discharge 5. Medical recommendations 6. Discharge planning: Patient will likely be discharged home today Time with Patient: Less than 30
--- NOTE | 2017-12-21 14:40 | P.DS ---
Providers Date of admission: 12/20/17 13:58 Attending physician: Alfredo Mina Consults: 12/20/17 18:11 Consult Physician Routine Consulting Provider: Bryan Ocampo Consult Reason/Comments: Medical management Do you want consulting provider notified?: Yes Primary care physician: Yarelis Lazar MD Hospital Course: Date of admission: 12/20/2017 Date of discharge: 12/21/2017 Admission diagnosis: Status post right total knee arthroplasty Discharge diagnosis: Same Attending physician: Dr. Mina Surgical procedures: Right total knee arthroplasty Brief history: Patient is a 77-year-old female with a history of progressive primary right knee has arthritis. At this point patient has failed conservative treatment measures and has opted to proceed with a elective right total knee arthroplasty. Hospital course: Details of patient's surgery can be found in operative report. Patient tolerated the procedure well and was subsequently transported to orthopedic floor. Patient's orthopeidc and medical care was provided daily. Patient had daily laboratory tests performed for evaluation of overall blood counts. Patient had daily physical therapy to include strengthening range of motion as well as education with walker ambulation. Patient had daily CPM usage as part of their physical therapy program. Patient was treated with Lovenox for their postoperative DVT prophylaxis during their inpatient stay. Patient was noted to have a relatively uneventful postoperative course. Patient reported satisfactory pain control with oral pain medications by postoperative day 0. Patient showed satisfactory progress with physical therapy. Patient moved steadily through the program and had no difficulty meeting the goals by postoperative day 1. Given patient's otherwise satisfactory course and having met physical therapy goals, plan is to discharge patient home on postoperative day 1. Discharge condition/disposition: Patient will be discharged home in stable condition. Discharge medications: Instructions are given on resumption of patient's normal daily medications per primary care recommendation, in addition patient will be prescribed [place] 7.5 mg/325 mg, tramadol 50 mg, Eliquis 2.5mg. Discharge instructions: 1. Wound care and infection precautions, keep incision dry and covered while showering, no lotions, creams, moisturizers. No soaking, tubs, pools, hottubs. Do not scrub over the incision. 2. Weight-bear as tolerated with walker / cane until follow-up. 3. Ice and elevate when necessary. Do not exceed 20 minutes per hour with ice pack. 4. Utilize compression sleeve until seen at first follow up appointment. 5. Visiting nursing care. 6. Home physical therapy including home CPM. 7. Pain meds and anticoagulants per prescription. 8. Pain medication has potential to cause constipation. Increase oral fluid and fiber intake. Contact primary care provider if you have not had a bowel movement within 48 hours after discharge 9. No anti-inflammatory medication until discussed at first post operative visit, this including Motrin, Aleve, Mobic, Diclofenac. 10. Follow up in office at 2 weeks postop with Mark Tanner PA-C 11. Follow up with your primary care doctor 7-10 days after discharge. 12. Contact [facility] with any questions, . Procedures: Right total knee arthroplasty Patient Condition at Discharge: Good Plan - Discharge Summary Discharge Rx Participant: Yes New Discharge Prescriptions: New Apixaban [Eliquis] 2.5 mg PO BID #24 tab HYDROcodone/APAP 7.5-325MG [[place]oka 7.5] 1 - 2 each PO Q6HR PRN #60 tab PRN Reason: Pain traMADol HCl [Ultram] 50 mg PO Q6H PRN #40 tab PRN Reason: Pain No Action Cyanocobalamin [Vitamin B-12] 500 mcg PO DAILY@1200 Cholecalciferol [Vitamin D3] 2,000 unit PO BID Furosemide [Lasix] 40 mg PO DAILY ALPRAZolam [Xanax] 0.5 mg PO DAILY PRN PRN Reason: Anxiety Spironolactone [Aldactone] 25 mg PO DAILY@1100 Omeprazole 20 mg PO DAILY@1100 Levothyroxine Sodium [Synthroid] 50 mcg PO DAILY Metoprolol Succinate [Toprol XL] 50 mg PO DAILY@1100 Allopurinol [Zyloprim] 100 mg PO DAILY Gabapentin [Neurontin] 300 mg PO TID Tumeric 500 mg PO DAILY Losartan Potassium 50 mg PO HS Discharge Medication List ALPRAZolam [Xanax] 0.5 mg PO DAILY PRN 11/30/14 [History] Cholecalciferol [Vitamin D3] 2,000 unit PO BID 11/30/14 [History] Cyanocobalamin [Vitamin B-12] 500 mcg PO DAILY@1200 11/30/14 [History] Furosemide [Lasix] 40 mg PO DAILY 11/30/14 [History] Levothyroxine Sodium [Synthroid] 50 mcg PO DAILY 11/02/16 [History] Metoprolol Succinate [Toprol XL] 50 mg PO DAILY@1100 11/02/16 [History] Omeprazole 20 mg PO DAILY@1100 11/02/16 [History] Spironolactone [Aldactone] 25 mg PO DAILY@1100 11/02/16 [History] Allopurinol [Zyloprim] 100 mg PO DAILY 12/03/17 [History] Gabapentin [Neurontin] 300 mg PO TID 12/03/17 [History] Losartan Potassium 50 mg PO HS 12/03/17 [History] Tumeric 500 mg PO DAILY 12/03/17 [History] Apixaban [Eliquis] 2.5 mg PO BID #24 tab 12/21/17 [Rx] HYDROcodone/APAP 7.5-325MG [[place] 7.5] 1 - 2 each PO Q6HR PRN #60 tab 12/21/17 [ Rx] traMADol HCl [Ultram] 50 mg PO Q6H PRN #40 tab 12/21/17 [Rx] Follow up Appointment(s)/Referral(s): Yarelis Lazar MD [Primary Care Provider] - 12/30/17 3:40 pm Major Tanner PAC [PHYSIC[employer]END[employer]] - 01/05/18 2:50 pm Activity/Diet/Wound Care/Special Instructions: Orthopedic Discharge Instructions: 1. Wound care and infection precautions, keep incision dry and covered while showering, no lotions, creams, moisturizers. No soaking, pools, hot tubs. Do not scrub over incision. 2. Weight-bear as tolerated with walker / cane until follow-up. 3. Ice and elevate when necessary. Do not exceed 20 minutes per hour with ice pack. 4. Utilize compression sleeve until seen at first follow up appointment. 5. Visiting nursing care. 6. Home physical therapy including home CPM. 7. Pain meds and anticoagulants per prescription. 8. Pain medication has potential to cause constipation. Increase oral fluid and fiber intake. Contact primary care provider if you have not had a bowel movement within 48 hours after discharge. 9. No anti-inflammatory medication until discussed at first post operative visit, this including Motrin, Aleve, Mobic, Diclofenac. 10. Follow up in office at 2 weeks postop with Mark Tanner PA-C 11. Follow up with your primary care doctor 7-10 days after discharge. 12. Contact [facility] with any questions, . [facility] - [phone] Discharge Disposition: HOME WITH HOME HEALTH SERVICES
[2017-12-21] MEDS: SODIUM CHLORIDE 0.9% 1,000 ML IV SCH (16:06)
[2017-12-21] MEDS: LOSARTAN 50 MG TAB PO SCH (21:10)
[2017-12-21] MEDS: SENNOSIDES-DOCUSATE SODIUM 1 EACH TAB PO SCH (21:10)
[2017-12-22] MEDS: LEVOTHYROXINE 50 MCG TAB PO SCH (05:51)
[2017-12-22] MEDS: HYDROcodone/APAP 7.5-325MG 1 EACH TAB PO PRN (07:27)
[2017-12-22] MEDS: ENOXAPARIN 30 MG/0.3 ML SYRINGE SQ SCH (07:28)
[2017-12-22] MEDS: CHOLECALCIFEROL 1,000 UNIT TAB PO SCH (07:28)
[2017-12-22] MEDS: GABAPENTIN 300 MG CAP PO SCH (07:29)
[2017-12-22] MEDS: MELOXICAM 7.5 MG TAB PO SCH (07:29)
[2017-12-22] MEDS: SODIUM CHLORIDE 0.9% 1,000 ML IV SCH (07:30)
[2017-12-22] MEDS: ALLOPURINOL 100 MG TAB PO SCH (07:30)
[2017-12-22] MEDS: traMADol 50 MG TAB PO SCH (07:31)
--- NOTE | 2017-12-22 09:37 | P.PN ---
Subjective Progress Note Date: 12/22/17 Principal diagnosis: osteoarthritis Patient is a 77-year-old female with a past medical history of hypertension, chronic kidney disease stage III, and hypothyroidism who presented for elective right total knee arthroplasty. She underwent the procedure and tolerated it well. She does have some postoperative anemia. Patient seen and examined at bedside. She states her pain is much better controlled today than yesterday. She did not take a pain pill last night so her pain was high this morning. She was able to walk with physical therapy and do the stairs. She is excited to go home. She has any chest pain, shortness of breath, nausea, or vomiting. She is already had a bowel movement. I encouraged her to take laxatives as needed with use of pain medications. Objective - Vital Signs Vital signs: Vital Signs Temp 97.6 F 12/22/17 01:22 Pulse 78 12/22/17 01:22 Resp 17 12/22/17 01:22 BP 142/73 12/22/17 01:22 Pulse Ox 95 12/22/17 01:22 Intake & Output 12/21/17 12/22/17 12/22/17 18:59 06:59 18:59 Intake Total 920 260 200 Balance 920 260 200 Intake: Oral 920 260 200 Other: Voiding Method Toilet # Voids 1 2 - Exam General: non toxic, no distress, appears at stated age, obese Derm: warm, dry Head: atraumatic, normocephalic, symmetric Eyes: EOMI, no lid lag, anicteric sclera Mouth: no lip lesion, mucus membranes moist Cardiovascular: S1S2 reg, no murmur, positive posterior tibial pulse bilateral, Lungs: CTA bilateral, no rhonchi, no rales , no accessory muscle use Ext: no gross muscle atrophy, trace edema, no contractures Neuro: CN II-XI grossly intact, no focal neuro deficits Psych: Alert, oriented, appropriate affect - Labs CBC & Chem 7: 12/21/17 07:14 12/21/17 07:14 Assessment and Plan Assessment: Osteoarthritis status post right total knee arthroplasty -Anticoagulation per surgical services -Management per or so -Pain control -Bowel regiment has medications at home that she can take for this, does not need Rx. Anticipated postoperative blood loss anemia -Ferrous sulfate 325 mg twice daily for 30 days -Recheck CBC on follow-up with Dr. Lazar Hypertension, controlled -Continue home medications Chronic kidney disease stage III appears at baseline -Continue outpatient follow-up Plan: Medically stable for discharge
[2017-12-22 10:27] VITALS: BP 96/52; PULSE 79; RESP 16; TEMP 98.6
--- NOTE | 2017-12-22 11:00 | P.PN ---
Subjective Progress Note Date: 12/22/17 Principal diagnosis: s/p right tka Patient seen today resting in hospital bed, she appears comfortable. She denies any headaches, lightheadedness, chest pain or shortness of breath Objective - Vital Signs Vital signs: Vital Signs Temp 98.6 F 12/22/17 07:00 Pulse 79 12/22/17 07:00 Resp 16 12/22/17 07:00 BP 96/52 12/22/17 07:00 Pulse Ox 94 L 12/22/17 07:00 Intake & Output 12/21/17 12/22/17 12/22/17 18:59 06:59 18:59 Intake Total 920 260 200 Balance 920 260 200 Intake: Oral 920 260 200 Other: Voiding Method Toilet # Voids 1 2 - Exam Right lower extremity: Incision is in good condition, nathanael are in good position. Minimal ecchymosis present around the medial and lateral aspects of the incision. A soft, no tenderness with palpation. Plantar flexion, dorsiflexion, EHL, FHL are intact. Dorsalis pedis pulses 2+. Sensory exam to light touch throughout extremities intact. - Labs CBC & Chem 7: 12/21/17 07:14 12/21/17 07:14 Assessment and Plan Plan: Assessment: 1. Postop day #2 status post right total knee arthroplasty Plan: 1. Pain control, we'll discharge home on oral medication 2. GI and DVT prophylaxis, Eliquis 2.5 mg by mouth twice a day 3. Wound care instructions were discussed 4. Home care nursing after discharge 5. Medical recommendations 6. Discharge planning: Patient will be discharged home today Time with Patient: Less than 30
[2017-12-22] MEDS: PANTOPRAZOLE 40 MG TABLET PO SCH (12:39)
[2017-12-22] MEDS: METOPROLOL SUCCINATE (ER) 50 MG TAB.ER.24H PO SCH (12:39)
[2017-12-22] MEDS: SPIRONOLACTONE 25 MG TAB PO SCH (12:40)
[2017-12-22] MEDS: CYANOCOBALAMIN 500 MCG TAB PO SCH (12:40)
== END 2017-12-22 12:50 | disposition home health service (06) | DRG 470 ==
LOC: 2ORMAIN 13:58 → 3SUR 17:53
PROVIDERS: ADMIT Orthopaedic Surgery; ATTEND Orthopaedic Surgery
PROC: 0SRC069 Replacement of Right Knee Joint with Oxidized Zirconium on Polyethylene Synthetic Substitute, Cemented, Open Approach (ICD-10-PCS; principal; 2017-12-20 16:00)
DX: M17.11 Unilateral primary osteoarthritis, right knee (principal); N18.3 Chronic kidney disease, stage 3 (moderate); E66.01 Morbid (severe) obesity due to excess calories; D50.0 Iron deficiency anemia secondary to blood loss (chronic); Z68.43 Body mass index [BMI] 50.0-59.9, adult; E03.9 Hypothyroidism, unspecified; K21.9 Gastro-esophageal reflux disease without esophagitis; Z96.652 Presence of left artificial knee joint; Z96.641 Presence of right artificial hip joint; M10.9 Gout, unspecified; M54.12 Radiculopathy, cervical region; I12.9 Hypertensive chronic kidney disease with stage 1 through stage 4 chronic kidney disease, or unspecified chronic kidney disease; Z85.820 Personal history of malignant melanoma of skin; Z98.51 Tubal ligation status; Z90.49 Acquired absence of other specified parts of digestive tract; Z79.899 Other long term (current) drug therapy; Z87.891 Personal history of nicotine dependence; Z80.3 Family history of malignant neoplasm of breast; Z82.49 Family history of ischemic heart disease and other diseases of the circulatory system; Z82.5 Family history of asthma and other chronic lower respiratory diseases; Z80.49 Family history of malignant neoplasm of other genital organs; Z83.3 Family history of diabetes mellitus; Z86.39 Personal history of other endocrine, nutritional and metabolic disease
CPT/HCPCS: 80053; 85025; 88300

== ENCOUNTER → 2018-03-15 | Outpatient (CLI) | payer MEDICARE, OTHER ==
[2018-03-15 12:38] LABS: Albumin 4.2 g/dL (3.5-5.0); Calcium 9.3 mg/dL (8.4-10.2); Potassium 4.5 mmol/L (3.5-5.1); Total Bilirubin 0.5 mg/dL (0.2-1.3); Total Protein 6.9 g/dL (6.3-8.2); Uric Acid 6.2 mg/dL (3.7-7.4)
[2018-03-15 12:43] LABS: Basophils % (A) 1 %; Eosinophils # (A) 0.1 k/uL (0-0.7); Eosinophils % (A) 3 %; HCT 43.2 % (34.0-46.0); HGB 13.9 gm/dL (11.4-16.0); Lymphocytes # (A) 1.2 k/uL (1.0-4.8); Lymphocytes % (A) 23 %; MCH 27.4 pg (25.0-35.0); MCHC 32.2 g/dL (31.0-37.0); MCV 84.9 fL (80.0-100.0); Mean Platelet Volume 7.1; Monocytes # (A) 0.4 k/uL (0-1.0); Monocytes % (A) 8 %; Neutrophils # (A) 3.3 k/uL (1.3-7.7); Neutrophils % (A) 64 %; Platelet Count 218 k/uL (150-450); RBC 5.08 m/uL (3.80-5.40); RDW 15.5 % (11.5-15.5); WBC 5.1 k/uL (3.8-10.6)
[2018-03-15 12:54] LABS: T4, Free (Free Thyroxine) 1.24 ng/dL (0.78-2.19)
== END | disposition home or self-care (01) ==
LOC: LABWHC1 11:57
PROVIDERS: ATTEND Family Medicine
DX: E03.9 Hypothyroidism, unspecified (principal); N18.3 Chronic kidney disease, stage 3 (moderate)
CPT/HCPCS: 36415; 80053; 80061; 82043; 82570; 83735; 83970; 84439; 84443; 84550; 85025

== ENCOUNTER → 2018-06-13 | Outpatient (CLI) | payer MEDICARE, OTHER ==
[2018-06-13 12:05] LABS: HCT 42.1 % (34.0-46.0); HGB 13.4 gm/dL (11.4-16.0); MCH 27.6 pg (25.0-35.0); MCHC 31.7 g/dL (31.0-37.0); MCV 86.9 fL (80.0-100.0); Platelet Count 199 k/uL (150-450); RBC 4.85 m/uL (3.80-5.40); RDW 15.8 % (11.5-15.5); WBC 5.9 k/uL (3.8-10.6)
[2018-06-13 12:11] LABS: Calcium 9.3 mg/dL (8.4-10.2); Potassium 4.5 mmol/L (3.5-5.1)
== END | disposition home or self-care (01) ==
LOC: LABWHC1 11:22
PROVIDERS: ATTEND Family Medicine
DX: N18.3 Chronic kidney disease, stage 3 (moderate) (principal)
CPT/HCPCS: 36415; 80048; 83970; 85027

== ENCOUNTER → 2019-05-16 | Outpatient (CLI) | payer MEDICARE, OTHER | LOC: LABWHC1 11:15 | PROVIDERS: ATTEND Family Medicine | DX: R19.7 Diarrhea, unspecified (principal) | CPT/HCPCS: 87045; 87046; 87328; 87329 ==

== ENCOUNTER 2019-05-22 07:52 | Day surgery (SDC) | payer MEDICARE, OTHER ==
[2019-05-18 09:51] VITALS: BMI 52.9
[~2019-05-22 07:52] MED LIST changes: -HYDROmorphone 0.5 MG/0.5 ML SYRINGE IVP PRN; +LACTATED RINGERS 1,000 ML IV SCH; +LIDOCAINE 1% 20 ML VIAL (10MG/ML) FOR IV START INTRADERMA PRN; -MIDAZOLAM 2 MG/2 ML VIAL IV PRN; -MORPHINE SULFATE 2 MG/ML SYRINGE IV PRN; -TRANEXAMIC ACID 1,000 MG in SODIUM CHLORIDE 0.9% 50 ML IVPB ONE
[2019-05-22 08:17] VITALS: RESP 16; TEMP 97
[2019-05-22] MEDS ORDERED: PROPOFOL 10 MG/ML 20 ML VIAL IV ONE (08:28)
--- NOTE | 2019-05-22 08:34 | P.GSHP ---
History of Present Illness H&P Date: 05/22/19 Chief Complaint: Change in bowel habits, GI bleed This a 71-year-old female who presents today for colonoscopy. She's had issues with change in bowel habits of GI bleed. Past Medical History Past Medical History: Cancer, GERD/Reflux, Hypertension, Osteoarthritis (OA), Renal Disease, Thyroid Disorder Additional Past Medical History / Comment(s): Hx skin cancer (melanoma), gout, laith feet/ankle edema, chronic kidney disease stage III. Diarrhea for few months currently. History of Any Multi-Drug Resistant Organisms: None Reported Past Surgical History: Cholecystectomy, Joint Replacement Additional Past Surgical History / Comment(s): Parathyroid removed, Laith knees replaced, Total RT Hip. Colonoscopy Past Anesthesia/Blood Transfusion Reactions: No Reported Reaction Smoking Status: Former smoker - Past Family History Sister(s) Family Medical History: Cancer Additional Family Medical History / Comment(s): BREAST CANCER Father Family Medical History: Myocardial Infarction (OR) Additional Family Medical History / Comment(s): FROM OR AT GE 57 Mother Family Medical History: Cancer Additional Family Medical History / Comment(s): Monitored at age 74 with history of CERVICAL CANCER/METS, COPD, CHF Brother(s) Additional Family Medical History / Comment(s): Patient has one brother with diabetes. Daughter(s) Additional Family Medical History / Comment(s): Patient has 2 daughters. One has no major medical problems. One has history of irregular heartbeat. Son(s) Additional Family Medical History / Comment(s): Patient has 2 sons with no major medical problems. Medications and Allergies Home Medications Medication Instructions Recorded Confirmed Type ALPRAZolam [Xanax] 0.5 mg PO DAILY PRN 11/30/14 05/18/19 History Cholecalciferol [Vitamin D3 (25 2,000 unit PO BID 11/30/14 05/18/19 History Mcg = 1000 Iu)] Furosemide [Lasix] 40 mg PO DAILY 11/30/14 05/18/19 History Levothyroxine Sodium [Synthroid] 50 mcg PO DAILY 11/02/16 05/18/19 History Omeprazole 20 mg PO DAILY@1200 11/02/16 05/18/19 History Spironolactone [Aldactone] 25 mg PO DAILY@1200 11/02/16 05/18/19 History Allopurinol [Zyloprim] 100 mg PO DAILY 12/03/17 05/18/19 History Gabapentin [Neurontin] 300 mg PO TID 12/03/17 05/18/19 History Losartan Potassium 50 mg PO DAILY 12/03/17 05/18/19 History traMADol HCl [Ultram] 50 mg PO Q6H PRN #40 tab 12/21/17 05/18/19 Rx Acetaminophen [Tylenol Extra 500 - 1,000 mg PO Q6H PRN 05/18/19 05/18/19 History Strength] Turmeric Root Extract [Turmeric] 500 mg PO DAILY 05/18/19 05/18/19 History traZODone HCL 50 mg PO HS 05/18/19 05/18/19 History Allergies Allergy/AdvReac Type Severity Reaction Status Date / Time No Known Allergies Allergy Verified 05/22/19 08:06 Surgical - Exam Vital Signs Temp Pulse Resp BP Pulse Ox 97 F L 88 16 160/70 97 05/22/19 08:16 05/22/19 08:16 05/22/19 08:16 05/22/19 08:16 05/22/19 08:16 - General well developed, well nourished, no distress - Eyes PERRL - ENT normal pinna - Neck no masses - Respiratory normal expansion - Cardiovascular Rhythm: regular - Abdomen Abdomen: soft, non tender Assessment and Plan Assessment: Change in bowel habits, GI bleed. We'll perform colonoscopy.
--- NOTE | 2019-05-22 08:46 | P.OP ---
Date of Procedure: 05/22/19 Preoperative Diagnosis: GI bleed Change in bowel habits Postoperative Diagnosis: Internal hemorrhoids Procedure(s) Performed: Colonoscopy Anesthesia: MAC Surgeon: Moise Adair Pathology: none sent Condition: stable Disposition: PACU Description of Procedure: W PROCEDURE: The patient was placed on the endoscopy table in the lateral position. Digital rectal examination was performed which revealed internal hemorrhoids. . Flexible colonoscope was then placed in the patient's anus and passed throughout the entire colon. The ileocecal valve was visualized. The cecum, ascending, transverse, descending and sigmoid colon were normal. The rectum was normal as well. There were no masses, polyps or diverticula noted in the entire colon.
[2019-05-22 09:04] VITALS: BP 137/78; PULSE 78
== END 2019-05-22 09:22 | disposition home or self-care (01) ==
LOC: ORWHC2ENDO 07:52
PROVIDERS: ATTEND Surgery
DX: R19.4 Change in bowel habit (principal); K64.8 Other hemorrhoids; I12.9 Hypertensive chronic kidney disease with stage 1 through stage 4 chronic kidney disease, or unspecified chronic kidney disease; K21.9 Gastro-esophageal reflux disease without esophagitis; N18.3 Chronic kidney disease, stage 3 (moderate); Z79.899 Other long term (current) drug therapy; Z83.3 Family history of diabetes mellitus; Z85.820 Personal history of malignant melanoma of skin; Z87.891 Personal history of nicotine dependence; Z90.49 Acquired absence of other specified parts of digestive tract; Z96.653 Presence of artificial knee joint, bilateral; Z80.3 Family history of malignant neoplasm of breast; Z82.49 Family history of ischemic heart disease and other diseases of the circulatory system; Z80.49 Family history of malignant neoplasm of other genital organs; Z83.6 Family history of other diseases of the respiratory system; M19.90 Unspecified osteoarthritis, unspecified site; M10.9 Gout, unspecified
CPT/HCPCS: 45378; J2704

== ENCOUNTER 2019-12-06 08:44 | Day surgery (SDC) | payer MEDICARE, OTHER ==
[2019-12-01 09:26] VITALS: BMI 52.0
[~2019-12-06 08:44] MED LIST changes: +LIDOCAINE 1% (10MG/ML) FOR IV START INTRADERMA PRN; -LIDOCAINE 1% 20 ML VIAL (10MG/ML) FOR IV START INTRADERMA PRN
[2019-12-06 09:49] VITALS: RESP 16; TEMP 97.6
[2019-12-06] MEDS ORDERED: PROPOFOL 10 MG/ML 20 ML VIAL IV ONE (10:14)
[2019-12-06] MEDS ORDERED: LIDOCAINE 1% INJ 10MG/ML (20 ML MDV) ONE (10:14)
--- NOTE | 2019-12-06 10:25 | P.PCN ---
Date of Procedure: 12/06/19 Procedure(s) Performed: BRIEF HISTORY: Patient is a 79-year-old, pleasant, white female scheduled for an upper endoscopy as a part of evaluation of intermittent episodes of severe epigastric pain associated with nausea vomiting for the last 6 months duration. PROCEDURE PERFORMED: Esophagogastroduodenoscopy with biopsy. PREOPERATIVE DIAGNOSIS: Intermittent episodes of severe epigastric pain of 6 months duration. IV sedation per anesthesia. PROCEDURE: After informed consent was obtained, the patient was brought into the endoscopy unit. IV sedation was administered by Anesthesia under continuous monitoring. Initially the Olympus GIF-140 video endoscope was inserted into the mouth. Esophagus intubated without any difficulty. It was gradually advanced into the stomach and duodenum and carefully examined. The bulb and the second part of the duodenum appeared normal. The scope at this time was withdrawn to the stomach, adequately insufflated with air, and upon careful examination, mucosa of the antrum had mild diffuse gastritis and biopsies were done from this area. There were small gastric polyps noted in the body the stomach which were also biopsied. Rest of the, body, cardia and the fundus appeared normal. The scope was then withdrawn into the esophagus. The GE junction was located at 39 cm from the incisors. The esophagus appeared normal. There were no erosions or ulcerations seen, biopsies were done from the distal esophagus and the patient tolerated the procedure well. IMPRESSION: 1. Mild antral diffuse gastritis. 2. Small gastric polyps status post biopsy. RECOMMENDATIONS: The findings of this examination were discussed with the patient as well as a family. She was advised to follow with the biopsy results. She will continue with her current medications and she'll be seen in office in 6 weeks.
[2019-12-06 10:44] VITALS: BP 112/70; PULSE 81
== END 2019-12-06 11:22 | disposition home or self-care (01) ==
LOC: ORWHC2ENDO 08:44
PROVIDERS: ATTEND Internal Medicine Gastroenterology
DX: K29.50 Unspecified chronic gastritis without bleeding (principal); K31.7 Polyp of stomach and duodenum; I10 Essential (primary) hypertension; Z87.891 Personal history of nicotine dependence; E07.9 Disorder of thyroid, unspecified; N28.9 Disorder of kidney and ureter, unspecified; K21.9 Gastro-esophageal reflux disease without esophagitis; M10.9 Gout, unspecified; Z79.890 Hormone replacement therapy; Z79.891 Long term (current) use of opiate analgesic; Z79.899 Other long term (current) drug therapy
CPT/HCPCS: 88305; 43239; J2001; J2704

== ENCOUNTER → 2021-03-14 | Outpatient (CLI) | payer MEDICARE, OTHER | LOC: LABWHC1 14:03 | PROVIDERS: ATTEND Family Medicine | DX: R05 Cough (principal); R51.9 Headache, unspecified; Z20.822 Contact with and (suspected) exposure to COVID-19 | CPT/HCPCS: U0003; C9803; U0005 ==

== ENCOUNTER → 2021-08-26 | Outpatient (CLI) | payer MEDICARE, OTHER ==
--- NOTE | 2021-08-26 23:46 | US ---
EXAMINATION TYPE: US kidneys/renal and bladder DATE OF EXAM: 08/26/2021 COMPARISON: CT 11/30/2014 CLINICAL HISTORY: N18.3 Chronic Kidney Disease Stage III. EXAM MEASUREMENTS: Right Kidney: 10.0x4.4x5.5 cm Left Kidney: 9.1x4.8x5.0 cm Difficult study due to patient body habitus. Right Kidney: Possible cortical thinning noted Left Kidney: Possible cortical thinning noted Bladder: Anechoic Bilateral Jets seen: Yes IMPRESSION: 1. Mild thinning of the renal cortex bilaterally can be associated with developing renal failure.
== END | disposition home or self-care (01) ==
LOC: RADUSWWP 15:36
PROVIDERS: ATTEND Internal Medicine Nephrology
DX: N18.32 Chronic kidney disease, stage 3b (principal)
CPT/HCPCS: 76770

== ENCOUNTER → 2023-07-29 | Outpatient (CLI) | payer MEDICARE, OTHER ==
[2023-07-29 20:15] LABS: Appearance,Urine Cloudy (Clear); Bilirubin,Urine Negative (Negative); Blood,Urine Negative (Negative); Color,Urine Yellow (Yellow); Ketones,Urine Negative (Negative); Nitrite,Urine Negative (Negative); PH, Urine 5.5; Specific Gravity,Urine 1.015 (1.001-1.030); Urobilinogen,Urine 0.2 E.U./DL
[2023-07-29 20:32] LABS: Bacteria,Urine Trace
[2023-07-29 20:53] LABS: Microalbumin Creatinine Ratio <9 mg/g Cr (0-30)
[2023-07-30 03:55] LABS: % Iron Saturation 21.07 (12.00-45.00); Albumin 4.3 d/dL (3.8-4.9); BUN/Creat Ratio 15.27 Ratio (12.00-20.00); Blood Urea Nitrogen 16.8 mg/dL (9.0-27.0); Calcium 9.3 mg/dL (8.7-10.3); Carbon Dioxide 24.7 mmol/L (21.6-31.8); Chloride 102 mmol/L (96-109); Glucose 88 mg/dL (70-110); Iron 75 UG/DL (50-170); Magnesium 2.1 mg/dL (1.5-2.4); Phosphorus 3.1 mg/dL (2.4-5.1); Potassium 4.4 mmol/L (3.5-5.5); Sodium 139 mmol/L (135-145); Total Iron Binding Capacity 356 UG/DL (228-460); Uric Acid 6.6 mg/dL (2.9-7.7)
[2023-07-30 04:40] LABS: HCT 42.2 % (37.2-46.3); HGB 13.2 d/dL (12.0-15.0); MCH 28.4 pg (27.0-32.0); MCHC 31.3 d/dL (32.0-37.0); MCV 90.8 FL (80.0-97.0); Mean Platelet Volume 11.4 FL (9.5-12.2); NRBC Per 100 WBC 0 X 10*3/uL (0.00-0.01); Platelet Count 203 X 10*3/uL (140-440); RBC 4.65 X 10*6/uL (4.10-5.20); RDW 14.6 % (11.5-14.5); WBC 4.97 X 10*3/uL (4.50-10.00)
== END | disposition home or self-care (01) ==
LOC: LABWHC1 12:25
PROVIDERS: ATTEND Nurse Practitioner Family
DX: E55.9 Vitamin D deficiency, unspecified (principal); M10.9 Gout, unspecified; N39.0 Urinary tract infection, site not specified; N18.32 Chronic kidney disease, stage 3b; D63.1 Anemia in chronic kidney disease; N25.81 Secondary hyperparathyroidism of renal origin
CPT/HCPCS: 36415; 80048; 81001; 82040; 82043; 82306; 82570; 82728; 83540; 83550; 83735; 83970; 84100; 84550; 85027

== ENCOUNTER → 2024-10-11 | Outpatient (CLI) | payer MEDICARE, OTHER ==
[2024-10-11 19:09] LABS: Basophils # (A) 0.05 X 10*3/uL (0.00-0.10); Basophils % (A) 0.8 %; Eosinophils % (A) 4.6 %; HGB 13.9 g/dL (12.0-15.0); Lymphocytes # (A) 1.32 X 10*3/uL (0.90-5.00); Lymphocytes % (A) 20.1 %; MCH 27.2 pg (27.0-32.0); MCHC 30.9 g/dL (32.0-37.0); MCV 88.1 FL (80.0-97.0); Mean Platelet Volume 11.3 FL (9.5-12.2); Monocytes # (A) 0.56 X 10*3/uL (0.20-1.00); Monocytes % (A) 8.5 %; NRBC Per 100 WBC 0 X 10*3/uL (0.00-0.01); Neutrophils # (A) 4.31 X 10*3/uL (1.80-7.70); Neutrophils % (A) 65.7 %; Platelet Count 228 X 10*3/uL (140-440); RBC 5.11 X 10*6/uL (4.10-5.20); RDW 14.4 % (11.5-14.5); WBC 6.56 X 10*3/uL (4.50-10.00)
[2024-10-11 19:24] LABS: Microalbumin Creatinine Ratio <9 mg/g Cr (0-30)
[2024-10-11 19:37] LABS: Appearance,Urine Clear (Clear); Bilirubin,Urine Negative (Negative); Blood,Urine Negative (Negative); Color,Urine Yellow (Yellow); Ketones,Urine Negative (Negative); Nitrite,Urine Negative (Negative); PH, Urine 5.5; Specific Gravity,Urine 1.016 (1.001-1.030); Urobilinogen,Urine 0.2 E.U./DL
[2024-10-11 19:53] LABS: Albumin 4.3 g/dL (3.8-4.9); BUN/Creat Ratio 14.85 Ratio (12.00-20.00); Blood Urea Nitrogen 19.3 mg/dL (9.0-27.0); Calcium 9.4 mg/dL (8.7-10.3); Carbon Dioxide 22.4 mmol/L (21.6-31.8); Chloride 104 mmol/L (96-109); Glucose 97 mg/dL (70-110); Iron 60 UG/DL (50-170); Phosphorus 2.9 mg/dL (2.4-5.1); Potassium 4.9 mmol/L (3.5-5.5); Sodium 140 mmol/L (135-145); Total Iron Binding Capacity 368 UG/DL (228-460); Uric Acid 6.3 mg/dL (2.9-7.7)
[2024-10-11 20:12] LABS: Bacteria,Urine Trace (None Seen)
== END | disposition home or self-care (01) ==
LOC: LABWHC1 14:04
PROVIDERS: ATTEND Internal Medicine Nephrology
DX: N18.32 Chronic kidney disease, stage 3b (principal)
CPT/HCPCS: 36415; 80048; 81001; 82040; 82043; 82306; 82570; 82728; 83540; 83550; 83735; 83970; 84100; 84550; 85025

== ENCOUNTER 2024-11-15 11:31 | Day surgery (SDC) | payer MEDICARE, OTHER ==
[2024-11-15 12:31] VITALS: TEMP 97
[2024-11-15] MEDS: IV FLUID CONTINUATION 1,000 ML IV ONE ×2 (12:45→12:58)
[2024-11-15] MEDS: LACTATED RINGERS 1,000 ML IV SCH (12:51)
[2024-11-15] MEDS ORDERED: PROPOFOL 10 MG/ML 20 ML VIAL IV ONE (12:56)
[2024-11-15] MEDS ORDERED: LIDOCAINE 1% INJ 10MG/ML (20 ML MDV) ONE (12:56)
--- NOTE | 2024-11-15 13:08 | P.PCN ---
Date of Procedure: 11/15/24 Procedure(s) Performed: BRIEF HISTORY: Patient is a 84-year-old, pleasant, white female scheduled for an upper endoscopy as a part evaluation of longstanding history of GERD and intermittent dysphagia to solids.. PROCEDURE PERFORMED: Esophagogastroduodenoscopy with biopsy. PREOPERATIVE DIAGNOSIS: Longstanding history of GERD and intermittent dysphagia to solids. IV sedation per anesthesia. PROCEDURE: After informed consent was obtained, the patient was brought into the endoscopy unit. IV sedation was administered by Anesthesia under continuous monitoring. Initially the Olympus GIF-140 video endoscope was inserted into the mouth. Esophagus intubated without any difficulty. It was gradually advanced into the stomach and duodenum and carefully examined. The bulb and the second part of the duodenum appeared normal. The scope at this time was withdrawn to the stomach, adequately insufflated with air, and upon careful examination, mucosa of the antrum, had mild diffuse gastritis and biopsies were done from this area. Mucosa of the body, cardia and the fundus appeared normal. The scope was then withdrawn into the esophagus. The GE junction was located at 41 cm from the incisors. The esophagus appeared normal. There were no erosions or ulcerations seen, no evidence of esophageal stricture. Biopsies were done from mid and distal esophagus and the patient tolerated the procedure well. IMPRESSION: 1. Mild diffuse gastritis in the antrum of the stomach. 2. Normal-appearing esophagus with no evidence of esophagitis or esophageal stricture. RECOMMENDATIONS: The findings of this examination were discussed with the patient as well as her family. She was advised to continue with Pepcid 20 mg twice daily and follow antireflux measures.. Follow with the biopsy results. She will be seen in the office in 2 to 3 weeks.
[2024-11-15 13:25] VITALS: RESP 16
[2024-11-15 13:29] VITALS: BP 124/63; PULSE 60
== END 2024-11-15 13:54 | disposition home or self-care (01) ==
LOC: ORWHC2ENDO 11:31
PROVIDERS: ATTEND Internal Medicine Gastroenterology
DX: K29.50 Unspecified chronic gastritis without bleeding (principal); K21.9 Gastro-esophageal reflux disease without esophagitis; I73.9 Peripheral vascular disease, unspecified; E07.9 Disorder of thyroid, unspecified; I12.9 Hypertensive chronic kidney disease with stage 1 through stage 4 chronic kidney disease, or unspecified chronic kidney disease; N18.30 Chronic kidney disease, stage 3 unspecified; M19.90 Unspecified osteoarthritis, unspecified site; Z85.828 Personal history of other malignant neoplasm of skin; E66.01 Morbid (severe) obesity due to excess calories; Z79.890 Hormone replacement therapy; Z79.899 Other long term (current) drug therapy
CPT/HCPCS: 88305; 88342; 43239; J2003; J2704